=== PATIENT | female | born 1965 | race Caucasian/White ===

== ENCOUNTER 2016-11-22 15:22 | Observation (INO) | payer BC ==
[2016-11-21 23:28] VITALS: PULSE 75
[~2016-11-22] VITALS: Ht 167.6 cm; Wt 137.0 kg
[~2016-11-22 15:22] MED LIST: ALBU8I INH; APIX5 PO; CLIN1CAP5 PO; DUONI NEB; PRAV40 PO; PROT40TA PO; SYMB160A INH
[2016-11-22 15:26] VITALS: BP 189/89; PULSE 95; RESP 17; TEMP 98; O2SAT 98
[2016-11-22] MEDS ORDERED: SODIUM CHLORIDE 0.9% FLUSH 5 ML FLUSH IVF PRN (15:45)
[2016-11-22 16:24] VITALS: BP 131/63; PULSE 76; RESP 16; TEMP 98
--- NOTE | 2016-11-22 16:27 | RADRPT ---
EXAM DATE/TIME: 11/22/2016 16:15 [facility] COMPARISON: CT BRAIN W/O CONTRAST, November 25, 2015, 12:20. INDICATIONS : Altered mental status. RADIATION DOSE: 40.00 CTDIvol (mGy) MEDICAL HISTORY : Hypertension. Asthma. SURGICAL HISTORY : None. ENCOUNTER: Initial ACUITY: 1 day PAIN SCALE: 0/10 LOCATION: cranial TECHNIQUE: Multiple contiguous axial images were obtained of the head. Using automated exposure control and adj ustment of the mA and/or kV according to patient size, radiation dose was kept as low as reasonably a chievable to obtain optimal diagnostic quality images. FINDINGS: CEREBRUM: The ventricles are normal for age. No evidence of midline shift, mass lesion, hemorrhage or acute in farction. No extra-axial fluid collections are seen. POSTERIOR FOSSA: The cerebellum and brainstem are intact. The 4th ventricle is midline. The cerebellopontine angle i s unremarkable. EXTRACRANIAL: The visualized portion of the orbits is intact. SKULL: The calvaria is intact. No evidence of skull fracture. CONCLUSION: Stable unremarkable exam. Hugo Diaz MD on November 22, 2016 at 16:23 Board Certified Radiologist. This report was verified electronically.
[2016-11-22 17:15] LABS: AUTOMATED NEUTROPHIL # 4.1 TH/MM3 (1.8-7.7); BASOPHIL # 0.1 TH/MM3 (0-0.2); BASOPHIL % 0.8 % (0.0-2.0); EOSINOPHIL # 0.2 TH/MM3 (0-0.4); EOSINOPHIL % 3.5 % (0.0-4.0); HEMATOCRIT 40.1 % (35.0-46.0); HEMO FLAGS DIFF FINAL; LYMPH % 24.7 % (9.0-44.0); LYMPHOCYTE # 1.6 TH/MM3 (1.0-4.8); MEAN CELL VOLUME 83.2 FL (80.0-100.0); MEAN CORPUSCULAR HEMOGLOBIN 27.3 PG (27.0-34.0); MEAN CORPUSCULAR HGB CONC 32.9 % (32.0-36.0); MONO % 8.2 % (0.0-8.0); NEUT % 62.8 % (16.0-70.0); PLATELET COUNT 187 TH/MM3 (150-450); RED BLOOD COUNT 4.82 MIL/MM3 (4.00-5.30); RED CELL DISTRIBUTION WIDTH 15.3 % (11.6-17.2); WHITE BLOOD COUNT 6.6 TH/MM3 (4.0-11.0)
[2016-11-22 17:21] LABS: APTT (PATIENT) 24.5 SEC (24.3-30.1); PROTHROMBIN TIME - PATIENT 10.7 SEC (9.8-11.6)
[2016-11-22 17:29] LABS: BICARBONATE 31.8 MEQ/L (21.0-32.0); POTASSIUM 4.1 MEQ/L (3.5-5.1)
[2016-11-22] MEDS ORDERED: ACETAMINOPHEN 325 MG TAB PO ONE (18:00)
--- NOTE | 2016-11-22 18:19 | PD ---
HPI Chief Complaint: Neuro Symptoms/ Deficits Time Seen by Provider: 15:36 Travel History International Travel<30 days: No Contact w/Intl Traveler<30days: No Traveled to known affect area: No History of Present Illness HPI 51-year-old female came to the emergency room with history of headache, stuttering been going on since yesterday. Patient says that it has worsened this morning. She has history of stroke in the past. However her speech is stuttering and not dysarthric or aphasic. She is awake and answering questions appropriately. Vital signs are stable. PFSH Past Medical History Narrative Medical List of her past medical history as reviewed from the nursing note. Asthma: Yes Blood Disorders: No Anxiety: No Depression: No Heart Rhythm Problems: No Cancer: No Cardiovascular Problems: No High Cholesterol: No Chemotherapy: No Chest Pain: No Congestive Heart Failure: No COPD: No Diabetes: No Diminished Hearing: No Endocrine: No GERD: Yes Genitourinary: No Headaches: Yes Hypertension: Yes (when she is sick) Immune Disorder: No Musculoskeletal: Yes (Right shoulder injury) Neurologic: Yes (Migraines) Psychiatric: Yes Reproductive: No Respiratory: Yes (ASTHMA) Immunizations Current: Yes Migraines: Yes Radiation Therapy: No Sleep Apnea: No ?: Not : 0 Para: 0 Miscarriage: 0 : 0 Past Surgical History Abdominal Surgery: Yes (CHOLECYSTECTOMY) AICD: No Arteriovenous Shunt: No Cholecystectomy: Yes (10 YEARS AGO.) Insulin Pump: No Joint Replacement: Yes (screws in right leg from a fall from a horse 20ygo) Pacemaker: No Other Surgery: Yes (CHOLECYSTECTOMY) Social History Alcohol Use: No Tobacco Use: No Substance Use: No Allergies-Medications (Allergen,Severity, Reaction): Coded Allergies: Aspartame (Verified Allergy, Severe, NAUSEA/VOMITING, FACIAL SWELLING, ) Seafood (Verified Allergy, Severe, SOB, 11/22/16) *MDRO Multi-Drug Resistant Organism (Verified Adverse Reaction, Unknown, ) MRSA (arm-06/16/16) Comments List of her allergies reviewed from the nursing note. Reported Meds & Prescriptions Reported Meds & Active Scripts Active Reported Gabapentin 400 Mg Cap 400 Cap PO HS Acetaminophen 325 Mg Tab 325 Mg PO Q4-6H PRN Levothyroxine (Levothyroxine Sodium) 50 Mcg Tab 50 Mcg PO DAILY Bupropion HCl ER 12 HR (Bupropion HCl) 150 Mg Tab 150 Mg PO Q12HR Eliquis (Apixaban) 5 Mg Tab 5 Mg PO BID Pantoprazole (Pantoprazole Sodium) 40 Mg Tab 40 Mg PO DAILY Pravastatin 40 Mg Tab 40 Mg PO DAILY Triamterene-Hydrochlorothiazide 37.5-25 Mg Tab 1 Tab PO DAILY Proair Hfa 8.5 GM Inh (Albuterol Sulfate) 90 Mcg/Act Aer 1 Puff INH Q4H PRN 108 mcg/actuation Narrative Medication List of her home medications reviewed from the nursing note. Review of Systems Except as stated in HPI: all other systems reviewed are Neg Physical Exam Narrative GENERAL: Awake, alert, morbidly obese, moderate distress SKIN: Warm and dry. HEAD: Atraumatic. Normocephalic. EYES: Pupils equal and round. No scleral icterus. No injection or drainage. ENT: No nasal bleeding or discharge. Mucous membranes pink and moist. NECK: Trachea midline. No JVD. CARDIOVASCULAR: Regular rate and rhythm. No murmur appreciated. RESPIRATORY: No accessory muscle use. Clear to auscultation. Breath sounds equal bilaterally. GASTROINTESTINAL: Abdomen soft, non-tender, nondistended. Hepatic and splenic margins not palpable. MUSCULOSKELETAL: No obvious deformities. No clubbing. No cyanosis. No edema. NEUROLOGICAL: Awake and alert. No obvious cranial nerve deficits. Motor grossly within normal limits. Stuttering speech. NIH stroke score of 0 PSYCHIATRIC: Appropriate mood and affect; insight and judgment normal. Data Data Last Documented VS Vital Signs Date Time Temp Pulse Resp B/P Pulse Ox O2 Delivery O2 Flow Rate FiO2 11/22/16 20:06 98.1 78 18 119/60 100 Room Air Orders Electrocardiogram (11/22/16 15:36) Prothrombin Time / Inr (Pt) (11/22/16 15:36) Act Partial Throm Time (Ptt) (11/22/16 15:36) Complete Blood Count With Diff (11/22/16 15:36) Basic Metabolic Panel (Bmp) (11/22/16 15:36) Creatine Kinase (Cpk) (11/22/16 15:36) Troponin I (11/22/16 15:36) Ct Brain W/O Iv Contrast(Rout) (11/22/16 15:36) Ecg Monitoring (11/22/16 15:36) Iv Access Insert/Monitor (11/22/16 15:36) Oximetry (11/22/16 15:36) Sodium Chloride 0.9% Flush (Ns Flush) (11/22/16 15:45) Thyroid Stimulating Hormone (11/22/16 15:53) Acetaminophen (Tylenol) (11/22/16 18:00) Metoclopramide Inj (Reglan Inj) (11/22/16 20:00) Ketorolac Inj (Toradol Inj) (11/22/16 20:00) Admit Order (Ed Use Only) (11/22/16 20:09) Labs Laboratory Tests Test 11/22/16 16:45 White Blood Count 6.6 TH/MM3 Red Blood Count 4.82 MIL/MM3 Hemoglobin 13.2 GM/DL Hematocrit 40.1 % Mean Corpuscular Volume 83.2 FL Mean Corpuscular Hemoglobin 27.3 PG Mean Corpuscular Hemoglobin 32.9 % Concent Red Cell Distribution Width 15.3 % Platelet Count 187 TH/MM3 Mean Platelet Volume 7.6 FL Neutrophils (%) (Auto) 62.8 % Lymphocytes (%) (Auto) 24.7 % Monocytes (%) (Auto) 8.2 % Eosinophils (%) (Auto) 3.5 % Basophils (%) (Auto) 0.8 % Neutrophils # (Auto) 4.1 TH/MM3 Lymphocytes # (Auto) 1.6 TH/MM3 Monocytes # (Auto) 0.5 TH/MM3 Eosinophils # (Auto) 0.2 TH/MM3 Basophils # (Auto) 0.1 TH/MM3 CBC Comment DIFF FINAL Differential Comment Prothrombin Time 10.7 SEC Prothromb Time International 1.0 RATIO Ratio Activated Partial 24.5 SEC Thromboplast Time Sodium Level 138 MEQ/L Potassium Level 4.1 MEQ/L Chloride Level 99 MEQ/L Carbon Dioxide Level 31.8 MEQ/L Anion Gap 7 MEQ/L Blood Urea Nitrogen 16 MG/DL Creatinine 1.22 MG/DL Estimat Glomerular Filtration 46 ML/MIN Rate Random Glucose 100 MG/DL Calcium Level 8.8 MG/DL Total Creatine Kinase 99 U/L Troponin I 0.04 NG/ML Thyroid Stimulating Hormone 3.620 uIU/ML 3rd Gen [facility] Medical Decision Making Medical Screen Exam Complete: Yes Emergency Medical Condition: Yes Medical Record Reviewed: Yes Interpretation(s) Twelve-lead EKG Differential Diagnosis TIA, CVA, psychosomatic Narrative Course 6:[address] scan was within normal limits. Blood test results are within normal limit. Patient was ambulated and she did well without assistance. I am comfortable discharging her home. Procedures EKG Prior to Arrival: No Diagnosis Primary Impression: Stuttering Additional Impression: Headache Qualified Code: R51 - Nonintractable headache, unspecified chronicity pattern , unspecified headache type Referrals: Primary Care Physician 2 days Additional Instructions: Please return to the ER if the condition worsens or any other new concerns. Continue taking her aspirin every day. Follow-up with your primary care in couple days. Med/Other Pt SpecificInfo: No Change to Meds Disposition: 01 DISCHARGE HOME Condition: Stable Sami Ramirez MD Nov 22, 2016 18:18
[2016-11-22] MEDS ORDERED: ACET325T PO (18:34)
[2016-11-22] MEDS ORDERED: ALBUAER3 INH (18:34)
[2016-11-22] MEDS ORDERED: GABA400C5 PO (18:34)
[2016-11-22] MEDS ORDERED: PRAV40TA2 PO (18:34)
[2016-11-22] MEDS ORDERED: BUPR1TAB29 PO (18:34)
[2016-11-22] MEDS ORDERED: TRIA37.5 PO (18:34)
[2016-11-22] MEDS ORDERED: APIX5TAB PO (18:34)
[2016-11-22] MEDS ORDERED: LEVO50TA4 PO (18:34)
[2016-11-22] MEDS ORDERED: PANT40TA3 PO (18:34)
--- NOTE | 2016-11-22 19:58 | PD ---
Data Data Last Documented VS Vital Signs Date Time Temp Pulse Resp B/P Pulse Ox O2 Delivery O2 Flow Rate FiO2 11/22/16 20:06 98.1 78 18 119/60 100 Room Air Orders Electrocardiogram (11/22/16 15:36) Prothrombin Time / Inr (Pt) (11/22/16 15:36) Act Partial Throm Time (Ptt) (11/22/16 15:36) Complete Blood Count With Diff (11/22/16 15:36) Basic Metabolic Panel (Bmp) (11/22/16 15:36) Creatine Kinase (Cpk) (11/22/16 15:36) Troponin I (11/22/16 15:36) Urinalysis - C+S If Indicated (11/22/16 15:36) Ct Brain W/O Iv Contrast(Rout) (11/22/16 15:36) Ecg Monitoring (11/22/16 15:36) Iv Access Insert/Monitor (11/22/16 15:36) Oximetry (11/22/16 15:36) Sodium Chloride 0.9% Flush (Ns Flush) (11/22/16 15:45) Thyroid Stimulating Hormone (11/22/16 15:53) Acetaminophen (Tylenol) (11/22/16 18:00) Metoclopramide Inj (Reglan Inj) (11/22/16 20:00) Ketorolac Inj (Toradol Inj) (11/22/16 20:00) Labs Laboratory Tests Test 11/22/16 16:45 White Blood Count 6.6 TH/MM3 Red Blood Count 4.82 MIL/MM3 Hemoglobin 13.2 GM/DL Hematocrit 40.1 % Mean Corpuscular Volume 83.2 FL Mean Corpuscular Hemoglobin 27.3 PG Mean Corpuscular Hemoglobin 32.9 % Concent Red Cell Distribution Width 15.3 % Platelet Count 187 TH/MM3 Mean Platelet Volume 7.6 FL Neutrophils (%) (Auto) 62.8 % Lymphocytes (%) (Auto) 24.7 % Monocytes (%) (Auto) 8.2 % Eosinophils (%) (Auto) 3.5 % Basophils (%) (Auto) 0.8 % Neutrophils # (Auto) 4.1 TH/MM3 Lymphocytes # (Auto) 1.6 TH/MM3 Monocytes # (Auto) 0.5 TH/MM3 Eosinophils # (Auto) 0.2 TH/MM3 Basophils # (Auto) 0.1 TH/MM3 CBC Comment DIFF FINAL Differential Comment Prothrombin Time 10.7 SEC Prothromb Time International 1.0 RATIO Ratio Activated Partial 24.5 SEC Thromboplast Time Sodium Level 138 MEQ/L Potassium Level 4.1 MEQ/L Chloride Level 99 MEQ/L Carbon Dioxide Level 31.8 MEQ/L Anion Gap 7 MEQ/L Blood Urea Nitrogen 16 MG/DL Creatinine 1.22 MG/DL Estimat Glomerular Filtration 46 ML/MIN Rate Random Glucose 100 MG/DL Calcium Level 8.8 MG/DL Total Creatine Kinase 99 U/L Troponin I 0.04 NG/ML Thyroid Stimulating Hormone 3.620 uIU/ML 3rd Gen [facility] Supervised Visit with FREDI: No Narrative Course The patient was initially evaluated by the previous provider. See her note for further details. The patient was worked up and discharged by the previous provider, however upon discharge the patient reports that she still feels dizzy and has a headache and cannot go home. This is a 51-year-old female with history of CVA. She is on Eliquis. She started having stuttering speech yesterday evening as well as a gradual onset headache which is diffuse. On exam her speech is stuttered. There are no focal neurologic deficits. She was only given Tylenol by the previous provider. She is afebrile. CBC is unremarkable. BMP is remarkable for creatinine 1.22, GFR 46. Troponin is 0.04. TSH is 3.62. CT head read as stable unremarkable exam. I will give the patient Reglan and Toradol and will admit her for further treatment and evaluation of headache, stuttered speech, dizziness. Case discussed with [facility] hospitalist ANAIS Miles. The patient will be admitted to their service under Dr. Alvarado. Diagnosis Primary Impression: Stuttering Additional Impression: Headache Qualified Code: R51 - Intractable headache, unspecified chronicity pattern, unspecified headache type Admitting Information Admitting Physician Requests: Observation Referrals: Primary Care Physician 2 days Patient Instructions: General Instructions, Priapism (ED) Departure Forms: Tests/Procedures Additional Instruction: Please return to the ER if the condition worsens or any other new concerns. Continue taking her aspirin every day. Follow-up with your primary care in couple days. Disposition: 01 DISCHARGE HOME Condition: Stable Bhupendra Franco MD Nov 22, 2016 19:58 Bhupendra Franco MD Nov 22, 2016 19:58
[2016-11-22] MEDS ORDERED: METOCLOPRAMIDE HCL 10 MG/2 ML VIAL IV PUSH ONE (20:00)
[2016-11-22] MEDS ORDERED: KETOROLAC TROMETHAMINE 30 MG/ML (IVP) VIAL IV PUSH ONE (20:00)
[2016-11-22 20:06] VITALS: BP 119/60; PULSE 78; RESP 18; TEMP 98.1; O2SAT 100
[2016-11-22] MEDS ORDERED: NALOXONE HCL 0.4 MG/ML AMP IV PRN (20:15)
[2016-11-22] MEDS ORDERED: SODIUM CHLORIDE 0.9% FLUSH 5 ML FLUSH FLUSH PRN (20:15)
[2016-11-22] MEDS ORDERED: ONDANSETRON HCL 4 MG/2 ML VIAL IVP PRN (20:15)
[2016-11-22] MEDS ORDERED: ALBUTEROL SULFATE 90 MCG/ACT HFA 8 GM INHALER INH PRN (20:15)
[2016-11-22] MEDS ORDERED: ACETAMINOPHEN 325 MG TAB PO PRN (20:15)
[2016-11-22] MEDS ORDERED: GABAPENTIN 400 MG CAP PO SCH (21:00)
[2016-11-22 21:04] VITALS: BP 117/57
[2016-11-22 21:20] VITALS: BP 126/76; PULSE 87; RESP 18; TEMP 98; O2SAT 98
[2016-11-22] MEDS: SODIUM CHLORIDE 0.9% FLUSH 5 ML FLUSH FLUSH SCH (22:00)
[2016-11-22] MEDS: SODIUM CHLOR 0.9% 1000 ML INJ 1,000 ML IV SCH (22:00)
[2016-11-22] MEDS: buPROPion HCL 150 MG SUSTAINED RELEASE TAB PO SCH (22:01)
[2016-11-22] MEDS: APIXABAN 5 MG TABLET PO SCH (22:01)
--- NOTE | 2016-11-22 23:03 | RADRPT ---
EXAM DATE/TIME: 11/22/2016 20:35 [facility] COMPARISON: No previous studies available for comparison. INDICATIONS : Slurred speech. MEDICAL HISTORY : Hypertension. Gastroesophageal reflux disease. Methicillin-resistant Staphylococcus aureus. Migraines . Asthma. SURGICAL HISTORY : Cholecystectomy. Right shoulder injury. Right leg ORIF. ENCOUNTER: Initial ACUITY: 1 day PAIN SCORE: 0/10 LOCATION: Bilateral pelvis PEAK SYSTOLIC VELOCITIES (cm/sec): ICA/CCA RATIO: Right: 0.9 Left: 0.7 ICA: Right: 95 Left: 77 CCA: Right: 109 Left: 105 ECA: Right: 119 Left: 109 VERTEBRAL: Right: 51 antegrade Left: 56 antegrade Elevated flow velocities and ICA/CCA ratios have been found to correlate with increased degrees of vessel stenosis, calculated as percentage of diameter relative to a normal segment of distal ICA/CCA FINDINGS: RIGHT CAROTID: Minimal plaque seen of the right bulb and proximal internal carotid artery. LEFT CAROTID: No significant stenosis is visualized. The waveforms are within normal limits. VERTEBRAL ARTERIES: Antegrade flow is seen in both vertebral arteries. MISCELLANEOUS: None. CONCLUSION: Minimal atherosclerotic plaque of the right bifurcation without narrowing. No plaque or narrowing on the left. Ry Kwon MD on November 22, 2016 at 23:01 Board Certified Radiologist. This report was verified electronically.
[2016-11-23 00:20] VITALS: BP 128/78; PULSE 67; RESP 18; TEMP 97.9; O2SAT 97
[2016-11-23 03:58] VITALS: BP 114/70; PULSE 70; RESP 18; TEMP 98; O2SAT 98
[2016-11-23] MEDS ORDERED: LEVOTHYROXINE SODIUM 50 MCG TAB PO SCH (06:00)
[2016-11-23] MEDS: SODIUM CHLOR 0.9% 1000 ML INJ 1,000 ML IV SCH ×2 (06:10→15:37)
[2016-11-23 08:00] VITALS: PULSE 88
[2016-11-23] MEDS ORDERED: LORazepam 2 MG/ML VIAL IVS PRN (08:15)
[2016-11-23] MEDS ORDERED: ONDANSETRON HCL 4 MG/2 ML VIAL IV PUSH PRN (08:15)
[2016-11-23] MEDS ORDERED: ACETAMIN 325 MG/BUTALBITAL 50 MG/CAFFEINE 40 MG TAB PO PRN (08:15)
--- NOTE | 2016-11-23 08:19 | PD.CONS ---
History of Present Illness Service Neurology Consult Requested By medical/er Reason for Consult headache/tia Primary Care Physician Helen West M.D. History of Present Illness 50-year-old female with a PMH of Asthma and Morbid Obesity who came into the ER with complaints of stuttering speech and headache. has had photo/phonophobia and nausea. holocephalic headache. she feels it has similarities to her migraine headache. no syncope. takes eliquis bid and has been compliant with it. ct brain no ich. glucose 100. no fever, no leukocytosis. no head/neck trauma. Review of Systems Other ROS: 12 point negative rest as above Past Family Social History Past Medical History PMH: Asthma and Morbid Obesity, splenic infarct, migraines, augustine Past Surgical History PAST SURGICAL HISTORY: Cholecystectomy Allergies: Coded Allergies: Aspartame (Verified Allergy, Severe, NAUSEA/VOMITING, FACIAL SWELLING, ) Seafood (Verified Allergy, Severe, SOB, 11/24/15) Family History PAST FAMILY HISTORY: Reviewed. 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 Review of Systems All other ROS: ROS reviewed as documented in chart Past Family Social History Allergies: Coded Allergies: Aspartame (Verified Allergy, Severe, NAUSEA/VOMITING, FACIAL SWELLING, ) Seafood (Verified Allergy, Severe, SOB, 11/24/15) Review of Systems All other ROS: ROS reviewed as documented in chart Past Family Social History Allergies: Coded Allergies: Aspartame (Verified Allergy, Severe, NAUSEA/VOMITING, FACIAL SWELLING, ) Seafood (Verified Allergy, Severe, SOB, 11/22/16) *MDRO Multi-Drug Resistant Organism (Verified Adverse Reaction, Unknown, ) MRSA (arm-06/16/16) Active Ordered Medications Current Medications Medications (Trade) Dose Ordered Sig/Marielos Route Start Time Stop Time Status Last Admin (NS 1000 ml Inj) 1,000 ml @ 100 mls/hr Q10H IV 11/22/16 20:10 11/22/16 22:00 (NS Flush) 2 ml UNSCH PRN FLUSH 11/22/16 20:15 (NS Flush) 2 ml BID FLUSH 11/22/16 21:00 11/22/16 22:00 (Tylenol) 650 mg Q4H PRN PO 11/22/16 20:15 (Zofran Inj) 4 mg Q6H PRN IVP 11/22/16 20:15 (Narcan Inj) 0.4 mg UNSCH PRN IV 11/22/16 20:15 (Proair Hfa Inh) 1 puff Q4H PRN INH 11/22/16 20:15 (Eliquis) 5 mg BID PO 11/22/16 21:00 11/22/16 22:01 (Wellbutrin Sr) 150 mg Q12HR PO 11/22/16 21:00 11/22/16 22:01 (Neurontin) 400 mg HS PO 11/22/16 21:00 11/22/16 22:01 (Synthroid) 50 mcg DAILY@06 PO 11/23/16 06:00 11/23/16 06:36 (Protonix) 40 mg DAILY PO 11/23/16 09:00 (Pravachol) 40 mg DAILY PO 11/23/16 09:00 (Maxzide 37.5-25 Mg) 1 tab DAILY PO 11/23/16 09:00 Exam I&O / VS Vital Signs Date Time Temp Pulse Resp B/P Pulse Ox O2 Delivery O2 Flow Rate FiO2 11/23/16 03:58 98.0 70 18 114/70 98 11/23/16 00:20 97.9 67 18 128/78 97 11/22/16 21:20 98.0 87 18 126/76 98 11/22/16 21:04 117/57 11/22/16 20:06 98.1 78 18 119/60 100 Room Air 11/22/16 16:31 91 16 Room Air 11/22/16 16:24 98.0 76 16 131/63 11/22/16 15:26 98.0 95 17 189/89 98 General: Alert and Oriented, No acute distress Eye: EOMI Respiratory: Non-labored respirations Cardiology: Normal rate Neurologic: Alert, Oriented, Normal motor, No focal defects, CN II-XII intact Psychiatric: Cooperative Exam Comments alert, sitting up in bed. was texting on her phone when i walked in. stuttered speech. able to name, read. follows midline request. eomi, ou 3-2mm, face sym, zhao to gravity, morbid obesity, gait not assessed 2/2 fall risk Review/Management Diagnosis/Plan: (1) MIGRAINE UNSPECIFIED W/O INTRACT MGRN W/O STATUS MIGRAINOSUS Plan: probable migraine r/o recurrent left mca stroke on eliquis had stuttering 11/2015 and mri showed a tiny left mca infarct mra brain/carotids nml recs mri/mra brain fioricet, zofran prn if no acute lesion ok to d/c when pain controlled and cleared by p.t. wt loss/exercise outpatient f/u (2) Chronic ischemic left MCA stroke Plan: on eliquis (3) Factor 5 Leiden mutation, heterozygous Plan: on eliquis (4) AUGUSTINE (obstructive sleep apnea) Plan: on cpap (5) Morbid obesity with body mass index of 50.0-59.9 in adult Plan: wt loss/exercise Sunny Porras MD Nov 23, 2016 08:19
[2016-11-23 08:44] VITALS: BP 131/77; PULSE 75; RESP 20; TEMP 96.8; O2SAT 96
[2016-11-23] MEDS ORDERED: TRIAMTERENE/HCTZ 37.5 MG/25 MG TAB PO SCH (09:00)
[2016-11-23] MEDS ORDERED: PANTOPRAZOLE SOD 40 MG DELAYED RELEASE TAB PO SCH (09:00)
[2016-11-23] MEDS: SODIUM CHLORIDE 0.9% FLUSH 5 ML FLUSH FLUSH SCH (09:00)
[2016-11-23] MEDS ORDERED: PRAVASTATIN SOD 40 MG TAB PO SCH (09:00)
[2016-11-23 09:07] LABS: AUTOMATED NEUTROPHIL # 4.1 TH/MM3 (1.8-7.7); BASOPHIL % 0.6 % (0.0-2.0); EOSINOPHIL # 0.3 TH/MM3 (0-0.4); EOSINOPHIL % 4.3 % (0.0-4.0); HEMATOCRIT 39.8 % (35.0-46.0); HEMO FLAGS DIFF FINAL; LYMPH % 20.9 % (9.0-44.0); LYMPHOCYTE # 1.3 TH/MM3 (1.0-4.8); MEAN CELL VOLUME 83.3 FL (80.0-100.0); MEAN CORPUSCULAR HEMOGLOBIN 27.2 PG (27.0-34.0); MEAN CORPUSCULAR HGB CONC 32.7 % (32.0-36.0); MONO % 9.3 % (0.0-8.0); NEUT % 64.9 % (16.0-70.0); PLATELET COUNT 182 TH/MM3 (150-450); RED BLOOD COUNT 4.78 MIL/MM3 (4.00-5.30); RED CELL DISTRIBUTION WIDTH 15.2 % (11.6-17.2); WHITE BLOOD COUNT 6.3 TH/MM3 (4.0-11.0)
[2016-11-23 09:33] LABS: BICARBONATE 31.2 MEQ/L (21.0-32.0); POTASSIUM 3.9 MEQ/L (3.5-5.1)
[2016-11-23] MEDS: buPROPion HCL 150 MG SUSTAINED RELEASE TAB PO SCH (09:43)
[2016-11-23] MEDS: APIXABAN 5 MG TABLET PO SCH (09:43)
[2016-11-23] MEDS ORDERED: BUTATAB6 PO (09:59)
--- NOTE | 2016-11-23 11:28 | MH ---
cc: KARINA ALVARADO MD DATE OF ADMISSION: 11/22/2016 TRAVEL HISTORY None less than 30 days. HISTORY OF PRESENT ILLNESS This is a pleasant obese 51-year-old female who came to the emergency room with acute onset of stuttering approximately 24 hours ago. She states that it has worsened this morning and at this point it is hard to comprehend any type of long phrases or sentences she is saying. She does admit having a stroke in the past, but she did not have the same symptoms that she is having now such as the stuttering. She did not note with the previous stroke any aphasia. The patient seems to be a good historian but secondary to the stuttering some of the information is now being gathered from her mother who has just arrived in the room. The patient denies any syncope. She does state that the onset of her stuttering started when she was speaking to someone on the phone and got very stressed out. She denies any nausea. She does have chronic headaches and states that she did start to have a headache yesterday with the onset. The patient verbalizes yes to being able to read, understand and comprehend verbal responses, and she can follow instructions. Currently the patient is awake and alert. She denies any diarrhea and no problems with her kidneys voiding. She does note a bowel movement within the last 24 hours. Currently the patient is on Eliquis. She has a history of obstructive sleep apnea and her CPAP machine is in the room with her. PAST MEDICAL HISTORY 1. Asthma. 2. CVA. 3. GERD. 4. Headaches/migraines 5. Hypertension, which mostly occurs when she is not feeling well. 6. Right shoulder injury. 7. Arthritis. 8. Obstructive sleep apnea. 9. MRSA right arm. PAST SURGICAL HISTORY 1. Cholecystectomy. 2. Screws in the right leg status post a fall from a horse approximately 20 years ago. ALLERGIES 1. ASPARTAME. 2. SEAFOOD. 3. MDRO. SOCIAL HISTORY No tobacco. No alcohol. No illicit drug use. The patient is single, currently lives in a home with her brother, sister and mother. 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 FAMILY HISTORY Heart disease, hypertension. MEDICATIONS Home medications: 1. Tylenol. 2. Butalbital, acetaminophen and caffeine, 50/325, 40 mg tab p.r.n. q.8h. for headache. 3. Eliquis 5 mg b.i.d. 4. Gabapentin 400 mg h.s. 5. Bupropion HCl ER 12 hour, 150 mg every 12 hours. 6. Albuterol inhaler p.r.n. for shortness of breath. 7. Pravastatin 40 mg p.o. daily. 8. Triamterene/hydrochlorothiazide 37.5/25 mg tab, one p.o. daily. 9. Protonix 40 mg daily. 10. Levothyroxine 50 mcg p.o. daily. REVIEW OF SYSTEMS A 12-point review was done. Positive findings include speech stuttering constant. All other systems were negative. PHYSICAL EXAMINATION GENERAL: An awake and alert x4 morbidly obese white female sitting up in the bed in no acute distress. SKIN: Warm and dry. No rashes. HEENT: Atraumatic, normocephalic. Mucous membranes are moist and pink. Pupils 2 mm bilaterally, equal, round, reactive to light and accommodation. No scleral icterus. No drainage noted in the eyes or nose. NECK: Supple. HEART: Regular rate and rhythm without murmurs, rubs or gallops appreciated. Heart sounds are distant. LUNGS: Essentially clear anteriorly and posteriorly without wheezes, rales or rhonchi. ABDOMEN: Soft, obese, nontender, nondistended. EXTREMITIES: Moves all extremities with purpose. She does have 1+ pedal edema bilaterally but her pulses are intact. No obvious deformities. No clubbing. NEUROLOGIC: Awake and alert x4. 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 Cranial nerves without deficits. Motor is within normal limits. Stuttering speech constant. PSYCHIATRIC: Appropriate affect and mood. Judgment normal. LABORATORY DATA On 11/23/2016 WBC count 6.3, RBC 4.78, hemoglobin 13, hematocrit 39.8, platelet count 182. [place] percentage 9.3, eosinophil percentage 4.3. INR is 1. Chemistry on 11/23/2016: Sodium 140, potassium 3.9, chloride 101, anion gap 8, BUN 21, creatinine 1.30, GFR 43, glucose 117. IMAGING DATA CT of the head: Stable, unremarkable exam. Carotid ultrasound: Minimal atherosclerotic plague of the right bifurcation without narrowing. No plaque or narrowing on the left. ASSESSMENT 1. Possible recurrent left MCA stroke, acute versus chronic. 2. Listless stuttering. 3. Non-retractable headache, probable migraine, without status migrainosus. 4. Obstructive sleep apnea. 5. Morbid obesity. PLAN 1. Monitor her vital signs q.4h. 2. Consult neurology for an expert opinion. 3. Medications as ordered. Reconcile medications. 4. Neuro-checks q.4h. 5. Cardiac monitoring. 6. Heart-healthy diet. 7. DVT prophylaxis. The patient is on Eliquis. 8. PUD prophylaxis. The patient is on Protonix. 9. IV access and flushing p.r.n. 10. Bed rest. May be out of bed with assistance due to safety reasons. 11. The patient is full code. Full aggressive care. 12. Will manage patient's chronic sleep apnea with her CPAP. 13. Will consider further testing such as MRI and MRA if warranted. This information will be discussed with Dr. Alvarado. This patient was seen on his behalf. This was discussed with the patient, the patient's mother and the patient's nurse. Dictated by: DASIA Stone Karina Alvarado MD MNAsael/BT /10:04 AM /11:27 AM pt is seen & Examined d/w PT & her mother at bedside Neuro input appreciated/ migraine MR Brain done ,neg for CVA headache is better d/w Angela , see H&P medically stable for d/c d/c home today cont current tx loose weight f/u pcp f/u Neurology Karina Alvarado MD Nov 23, 2016 14:59 MTDD
[2016-11-23 12:13] VITALS: BP 135/83; PULSE 82; RESP 20; TEMP 96.6; O2SAT 96
--- NOTE | 2016-11-23 13:30 | RADRPT ---
EXAM DATE/TIME: 11/23/2016 12:33 [facility] COMPARISON: MRI BRAIN W/O CONTRAST, November 27, 2015, 16:15. INDICATIONS : Slurred speech. MEDICAL HISTORY : Hypertension. Myocardial infarction. SURGICAL HISTORY : Cholecystectomy. Loop recorder. ENCOUNTER: Subsequent ACUITY: 2 day PAIN SCORE: 3/10 LOCATION: head. TECHNIQUE: Multiplanar, multisequence MRI of the brain was performed without contrast. FINDINGS: MRI of the brain is performed in sagittal, axial and coronal planes. The craniocervical junction and midline structures are unremarkable. Diffusion weighted images demonstrate no abnormality. There is n o evidence of acute cortical infarction, acute hemorrhage, mass effect or midline shift is seen. Post erior fossa structures are unremarkable. CONCLUSION: No evidence of acute intracranial pathology. No masses are identified. Carlitos Raphael MD on November 23, 2016 at 13:27 Board Certified Radiologist. This report was verified electronically.
--- NOTE | 2016-11-23 13:48 | RADRPT ---
EXAM DATE/TIME: 11/23/2016 12:33 [facility] COMPARISON: US CAROTID ARTERIES, November 22, 2016, 20:35. MRI BRAIN W/O CONTRAST, November 23, 2016, 12:33. MRA BRAIN W/O CONTRAST, November 27, 2015, 16:15. INDICATIONS : Slurred speech. MEDICAL HISTORY : Hypertension. Myocardial infarction. SURGICAL HISTORY : Cholecystectomy. Loop recorder. ENCOUNTER: Initial ACUITY: 2 day PAIN SCORE: 3/10 LOCATION: head Please note a normal MRA of the brain does not entirely exclude the possibility of a small aneurysm, TECHNIQUE: 3D time of flight MRA was performed. Source images, multiplanar STS MIP, and 3D volume MIP reconstru ctions were reviewed. FINDINGS: There is excellent visualization of the major intracranial arteries out to the second-order branch ve ssels. Anterior circulation: Significant steno-occlusive disease is identified in the proximal M2 branches of the right middle cer ebral artery. An abrupt cutoff of proximal M2 branch is characteristic of vascular occlusion. Signifi cant asymmetry is identified in the number of M2 and M3 branches from right to left with significantl y less branches seen on the right. Posterior circulation: The basilar and posterior cervical arteries are patent without significant stenosis or occlusions. CONCLUSION: Steno-occlusive disease is evident in the proximal M2 branches of the right middle ce rebral artery. Unremarkable left cerebral and vertebrobasilar circulations. Nabil Kowalski MD on November 23, 2016 at 13:31 Board Certified Radiologist. This report was verified electronically.
--- NOTE | 2016-11-23 15:00 | HHI.PR ---
Objective Objective Results - Vital Signs Date Time Temp Pulse Resp B/P Pulse Ox O2 Delivery O2 Flow Rate FiO2 11/23/16 12:13 96.6 82 20 135/83 96 11/23/16 08:44 96.8 75 20 131/77 96 11/23/16 08:00 88 11/23/16 03:58 98.0 70 18 114/70 98 11/23/16 00:20 97.9 67 18 128/78 97 11/22/16 21:20 98.0 87 18 126/76 98 11/22/16 21:04 117/57 11/22/16 20:06 98.1 78 18 119/60 100 Room Air 11/22/16 16:31 91 16 Room Air 11/22/16 16:24 98.0 76 16 131/63 11/22/16 15:26 98.0 95 17 189/89 98 Result Diagram: 11/23/16 0815 11/23/16 0815 Other Results Laboratory Tests Test 11/22/16 11/23/16 11/23/16 16:45 08:15 10:00 White Blood Count 6.6 6.3 Red Blood Count 4.82 4.78 Hemoglobin 13.2 13.0 Hematocrit 40.1 39.8 Mean Corpuscular Volume 83.2 83.3 Mean Corpuscular Hemoglobin 27.3 27.2 Mean Corpuscular Hemoglobin 32.9 32.7 Concent Red Cell Distribution Width 15.3 15.2 Platelet Count 187 182 Mean Platelet Volume 7.6 7.7 Neutrophils (%) (Auto) 62.8 64.9 Lymphocytes (%) (Auto) 24.7 20.9 Monocytes (%) (Auto) 8.2 9.3 Eosinophils (%) (Auto) 3.5 4.3 Basophils (%) (Auto) 0.8 0.6 Neutrophils # (Auto) 4.1 4.1 Lymphocytes # (Auto) 1.6 1.3 Monocytes # (Auto) 0.5 0.6 Eosinophils # (Auto) 0.2 0.3 Basophils # (Auto) 0.1 0.0 CBC Comment DIFF FINAL DIFF FINAL Differential Comment Prothrombin Time 10.7 Prothromb Time International 1.0 Ratio Activated Partial 24.5 Thromboplast Time Sodium Level 138 140 Potassium Level 4.1 3.9 Chloride Level 99 101 Carbon Dioxide Level 31.8 31.2 Anion Gap 7 8 Blood Urea Nitrogen 16 21 Creatinine 1.22 1.30 Estimat Glomerular Filtration 46 43 Rate Random Glucose 100 117 Calcium Level 8.8 8.6 Total Creatine Kinase 99 Troponin I 0.04 Thyroid Stimulating Hormone 3.620 3rd Gen Nasal Screen MRSA (PCR) POSITIVE Physical Exam Physical Exam pt is seen & Examined d/w PT & her mother at bedside Neuro input appreciated/ migraine MR Brain done ,neg for CVA headache is better d/w Angela , see H&P medically stable for d/c d/c home today cont current tx loose weight f/u pcp f/u Neurology Abhinav Alvarado MD Nov 23, 2016 14:59
[2016-11-23 17:25] VITALS: BP 110/65; PULSE 71; RESP 18; TEMP 97.7; O2SAT 98
--- NOTE | 2016-11-23 22:48 | EKG ---
Date Performed: 11/22/2016 Time Performed: 20:18:26 PTAGE: 51 years EKG: Sinus rhythm LOW QRS VOLTAGE IN PRECORDIAL LEADS BORDERLINE ECG PREVIOUS TRACING : 11/24/2015 23.33 DOCTOR: Karlo Santos Interpretating Date/Time 11/23/2016 22:43:56
--- NOTE | 2016-11-24 14:56 | EC ---
Study Study Date:11/23/2016 STUDY CONCLUSIONS SUMMARY - Procedure narrative: Image quality was fair. The study was technically limited due to body habitus. - Left ventricle: The cavity size was normal. Systolic function was normal. The estimated ejection fraction was in the range of 55% to 60%. Although no diagnostic regional wall motion abnormality was identified, this possibility cannot be completely excluded on the basis of this study. - Mitral valve: Question of elevated pressure consistant with mild to moderate mitral stenosis, but difficult to tell due to overall quality. If concern for mitral stenosis, would consider other modality. If LV function is below 40, please consider prescribing an ACEI or ARB or document rationale for non-use. PROCEDURE DATA STUDY STATUS: Elective. Procedure: Transthoracic echocardiography. Image quality was fair. The study was technically limited due to body habitus. Scanning was performed from the parasternal, apical, and subcostal acoustic windows. Study completion: The patient tolerated the procedure well. Transthoracic echocardiography. M-mode, complete 2D, complete spectral Doppler, and color Doppler. Patient status: Inpatient. CARDIAC ANATOMY LEFT VENTRICLE: The cavity size was normal. Systolic function was normal. The estimated ejection fraction was in the range of 55% to 60%. Although no diagnostic regional wall motion abnormality was identified, this possibility cannot be completely excluded on the basis of this study. AORTIC VALVE: The valve appears to be grossly normal. Doppler: There was no stenosis. No significant regurgitation. MITRAL VALVE: Not well visualized. Question of elevated pressure consistant with mild to moderate mitral stenosis, but difficult to tell due to overall quality. If concern for mitral stenosis, would consider other modality. Doppler: No significant regurgitation. Mean gradient: 7mm Hg (D). Peak gradient: 16mm Hg (D). PULMONIC VALVE: Not visualized. TRICUSPID VALVE: The valve appears to be grossly normal. Doppler: There was no evidence for stenosis. No significant regurgitation. BASIC MEASUREMENTS ADULT Normal Left ventricle LV internal dimension, ED, chordal level, *39 mm 43-52 PLAX LV posterior wall thickness, ED 6.29 mm IVS/LVPW ratio, ED *1.31 <1.3 Ventricular septum Septal thickness, ED 8.21 mm Left atrium Anterior-posterior dimension 34 mm Right ventricle RV internal dimension, ED, PLAX 19.4 mm 19-38 DOPPLER MEASUREMENTS ADULT Normal Aortic valve VTI, S 62.5 cm Mitral valve Peak E-wave velocity 160 cm/s Peak A-wave velocity 180 cm/s Mean velocity, D 120 cm/s Mean gradient, D 7 mm Hg Peak gradient, D 16 mm Hg Peak E/A ratio 0.9 Tricuspid valve Regurgitant peak velocity 252 cm/s Peak RV-RA gradient, S 25 mm Hg Maximal regurgitant velocity 252 cm/s LEGEND: Mean values are shown as u=mean value. Asterisk (*) lopez values outside specified normal range. Prepared and signed by Nahid Magaña [id number]
[2017-03-19] MEDS ORDERED: GABA300C5 PO (13:26)
[2017-03-19] MEDS ORDERED: CYAN1TAB24 (14:00)
[2017-03-19] MEDS ORDERED: CYAN1000P IM (14:00)
== END 2016-11-23 18:01 | disposition home or self-care (01) ==
LOC: NEPE 15:22 → NEDA 20:11 → NEPFCDU 21:19
PROVIDERS: ADMIT Specialist; ATTEND Specialist
DX: G43.909 Migraine, unspecified, not intractable, without status migrainosus (principal); F80.81 Childhood onset fluency disorder; J45.909 Unspecified asthma, uncomplicated; K21.9 Gastro-esophageal reflux disease without esophagitis; I10 Essential (primary) hypertension; Z79.899 Other long term (current) drug therapy; R42 Dizziness and giddiness; Z79.01 Long term (current) use of anticoagulants; Z86.73 Personal history of transient ischemic attack (TIA), and cerebral infarction without residual deficits; E66.01 Morbid (severe) obesity due to excess calories; D68.51 Activated protein C resistance; G47.33 Obstructive sleep apnea (adult) (pediatric)
CPT/HCPCS: 70450; 70544; 70551; 80048; 82550; 84443; 84484; 85025; 85610; 85730; 87641; 92523; 93005; 93306; 93880; 97163; 99285; G0378; G8987; G8988; G8999; G9158; G9186; J1885; J2060; J2765; J7030

== ENCOUNTER → 2017-03-19 | Outpatient (CLI) | payer BC ==
[~2017-03-19] MED LIST changes: +ACET325T PO; -ALBU8I INH; +ALBUAER3 INH; -APIX5 PO; +APIX5TAB PO; +BUPR1TAB29 PO; +BUTATAB6 PO; -CLIN1CAP5 PO; +CYAN1000P IM; +CYAN1TAB24; -DUONI NEB; +GABA300C5 PO; +GABA400C5 PO; +LEVO50TA4 PO; +MEDR4PAK PO; +PANT40TA3 PO; -PRAV40 PO; +PRAV40TA2 PO; -PROT40TA PO; -SYMB160A INH; +TRIA37.5 PO; +VENTAER INH; +ZITHTAB PO
--- NOTE | 2017-03-20 11:05 | EKG ---
Date Performed: 03/19/2017 Time Performed: 13:16:06 PTAGE: 51 years EKG: Sinus rhythm LOW QRS VOLTAGE IN PRECORDIAL LEADS INFERIOR MYOCARDIAL INFARCTION, PROBABLY OLD ABNORMAL ECG PREVIOUS TRACING : 11/22/2016 20.18 DOCTOR: Michele Lenz Interpretating Date/Time 03/20/2017 11:04:17
--- NOTE | 2017-03-24 11:54 | MH ---
cc: HAIM OLIVA DATE OF ADMISSION: 03/19/2017 ADMITTING DIAGNOSIS: postmenopausal bleeding with morbid obesity. HISTORY OF PRESENT ILLNESS: The patient is a 51-year-old single white female para 0 who had amenorrhea for 18 months and then bled heavily at the end of August and early September of 2016 leading to pads and tampons with large clots. She is now admitted for D&C. PAST MEDICAL HISTORY: 1. 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 2. She also has a history of sleep apnea. MEDICATIONS: Her medications include: 1. Maxzide. 2. Eliquis. 3. Statins. 4. Reflux inhibitors. ALLERGIES: 1. ASPARTAME. 2. SEAFOOD. 3. DEPAKOTE. TRANSFUSIONS: None OBSTETRICAL HISTORY: None. 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 She is single. Alcohol, tobacco and drugs are none. FAMILY HISTORY: Noncontributory. PHYSICAL EXAMINATION: GENERAL: A morbidly obese white female. VITAL SIGNS: Stable. HEIGHT: 5 feet 4. WEIGHT: 324 pounds. HEAD, EYES, EARS, NOSE, THROAT: Normal. CHEST: Clear. HEART: Regular rate. ABDOMEN: Benign. BREASTS: Symmetrical. PELVIC EXAM: Normal external genitalia and BUS. Vagina is normal. Cervix normal. Uterus normal size and shape anterior. No adnexal masses. IMAGING STUDIES: Ultrasound from 10/08/16 shows the uterus measuring 6.5 cm which could not be seen. Endometrium was 2 mm but could not be well visualized. ASSESSMENT: As above. PLAN: She is now admitted for hysteroscopy and D&C. While in the office, I explained the procedures, the risks, benefits, complications and possible need for additional procedure depending on the findings. MD STEPHANIE Zamora/PROSPER /10:37 AM /11:47 AM
== END ==
LOC: CPRE 12:55
PROVIDERS: ATTEND Obstetrics & Gynecology
DX: Z01.810 Encounter for preprocedural cardiovascular examination (principal); N95.0 Postmenopausal bleeding; R94.31 Abnormal electrocardiogram [ECG] [EKG]
CPT/HCPCS: 93005

== ENCOUNTER → 2017-03-25 | Day surgery (SDC) | payer BC ==
[~2017-03-25] VITALS: Ht 160 cm; Wt 159.3 kg
[~2017-03-25] MED LIST changes: +*ONDANSETRON 4 MG VIAL PERIprocedural Use ONLY ONE; +*RESP: ALBUTEROL 2.5 MG/3 ML NEB (PRN) PERIprocedural Use ONLY NEB ONE; +ACETAMINOPHEN 1000 MG/100 ML VIAL IV SCH; -BUPR1TAB29 PO; +CHLORHEXIDINE GLUCONATE 2 % 1 PACK (2 CLOTHS) TOPICAL PRN; +DEXAMETHASONE SOD PHOS 4 MG/ML VIAL ONE; +FAMOTIDINE 20 MG/2 ML VIAL ONE; -GABA400C5 PO; +INSULIN HUMAN REGULAR 1,000 UNITS/10 ML VIAL SQ PRN; +KETOROLAC TROMETHAMINE 60 MG/2 ML (IM) VIAL IM ONE; +LACTATED RINGER'S 1000 ML IV PRN; +METOCLOPRAMIDE HCL 10 MG/2 ML VIAL ONE; +METOPROLOL TARTRATE 25 MG TAB PO PRN; +MIDAZOLAM HCL 2 MG/2 ML VIAL ONE; +ONDANSETRON HCL 4 MG/2 ML VIAL IV PUSH ONE; +POVIDONE IODINE 5% (ANTISEPSIS KIT) 4 APPLICATIONS EACH NARE PRN; +PROPOFOL 200 MG/20 ML AMP IV ONE; +SODIUM CHLORID 0.9% 500 ML IV PRN; +ceFAZolin 1,000 MG/NS 100 ML IV SCH; +fentaNYL CITRATE 250 MCG/5 ML AMP ONE
[2017-03-25 06:32] VITALS: BP 117/80; PULSE 75; RESP 20; TEMP 98.6; O2SAT 99
[2017-03-25 07:18] LABS: BLOOD, URINE NEG (NEG); COMMENT (UR) CATH-CULT NOT IND; CULTURE IF INDICATED CATH CULTURE NOT IND; GLUCOSE,URINE NEG (NEG); KETONE, URINE NEG (NEG); MUCUS URINE FEW /lpf (OCC); NITRITE,URINE NEG (NEG); SQUAMOUS EPITHELIAL CELL URINE 1 /hpf (0-5); URINE COLOR YELLOW (YELLW/STRAW)
[2017-03-25 09:41] VITALS: BP 99/69; PULSE 76; RESP 18; TEMP 97.4; O2SAT 92
--- NOTE | 2017-03-26 08:35 | MP ---
cc: HAIM OLIVA DATE OF SURGERY: 03/25/2017 PREOPERATIVE DIAGNOSIS Postmenopausal bleeding. POSTOPERATIVE DIAGNOSIS Postmenopausal bleeding. PROCEDURE Hysteroscopy, D&C. ANESTHESIA General endotracheal. SURGEON Haim Oliva MD RESIDENTIAL SERVICE TECHNICIAN MICHELL Wilde. ESTIMATED BLOOD LOSS Less than 10 cc. FLUIDS 300 cc crystalloid. OBJECTIVE FINDINGS Following the induction of adequate general endotracheal anesthesia the patient was prepped and draped supine on the operating table in the dorsal lithotomy position in the usual sterile fashion with the bladder being drained via in and out catheterization. Exam under anesthesia revealed a normal size, shape, anterior uterus, no adnexal masses. A heavy weighted speculum was placed in the posterior fornix of the vagina. The anterior lip of the cervix was grasped with a single-tooth tenaculum. The cervix and uterus sounded to 8 cm. The cervix was dilated to a #16 Hanks dilator. The hysteroscope was passed with normal endocervix, normal endometrium. The scope was withdrawn. Endocervical curettings were obtained with a small serrated curette, endometrium with a small sharp curette. The cervical tenaculum site was sutured with 2-0 chromic. All retractors were removed. All counts were correct. The patient was taken out of the [facility]. She was awakened and taken to the recovery room in good condition. MD STEPHANIE Zamora/BT /7:57 AM /8:28 AM
== END | disposition home or self-care (01) ==
LOC: HSDC 05:37
PROVIDERS: ATTEND Obstetrics & Gynecology
DX: N95.0 Postmenopausal bleeding (principal); N84.0 Polyp of corpus uteri; I10 Essential (primary) hypertension; J45.909 Unspecified asthma, uncomplicated; G47.30 Sleep apnea, unspecified
CPT/HCPCS: 00952; 58558; 81001; 88305; 94664; J0131; J0690; J1100; J1885; J2250; J2405; J2765; J3010; J7120; J7613

== ENCOUNTER 2017-04-15 17:45 | Emergency (ER) | payer BC ==
[~2017-04-15] VITALS: Ht 160 cm; Wt 156.0 kg
[~2017-04-15 17:45] MED LIST changes: -*ONDANSETRON 4 MG VIAL PERIprocedural Use ONLY ONE; -*RESP: ALBUTEROL 2.5 MG/3 ML NEB (PRN) PERIprocedural Use ONLY NEB ONE; -ACETAMINOPHEN 1000 MG/100 ML VIAL IV SCH; -CHLORHEXIDINE GLUCONATE 2 % 1 PACK (2 CLOTHS) TOPICAL PRN; -CYAN1TAB24; -DEXAMETHASONE SOD PHOS 4 MG/ML VIAL ONE; -FAMOTIDINE 20 MG/2 ML VIAL ONE; -INSULIN HUMAN REGULAR 1,000 UNITS/10 ML VIAL SQ PRN; -KETOROLAC TROMETHAMINE 60 MG/2 ML (IM) VIAL IM ONE; -LACTATED RINGER'S 1000 ML IV PRN; -MEDR4PAK PO; -METOCLOPRAMIDE HCL 10 MG/2 ML VIAL ONE; -METOPROLOL TARTRATE 25 MG TAB PO PRN; -MIDAZOLAM HCL 2 MG/2 ML VIAL ONE; -ONDANSETRON HCL 4 MG/2 ML VIAL IV PUSH ONE; -POVIDONE IODINE 5% (ANTISEPSIS KIT) 4 APPLICATIONS EACH NARE PRN; -PROPOFOL 200 MG/20 ML AMP IV ONE; -SODIUM CHLORID 0.9% 500 ML IV PRN; -VENTAER INH; -ZITHTAB PO; -ceFAZolin 1,000 MG/NS 100 ML IV SCH; -fentaNYL CITRATE 250 MCG/5 ML AMP ONE
[2017-04-15 17:54] VITALS: BP 159/77; PULSE 104; RESP 18; O2SAT 98
--- NOTE | 2017-04-15 18:20 | PD ---
HPI Chief Complaint: Respiratory Symptoms Time Seen by Provider: 18:16 Travel History International Travel<30 days: No Contact w/Intl Traveler<30days: No Traveled to known affect area: No History of Present Illness HPI Patient was sent over from urgent care after being evaluated there for cough, congestion, sinus pressure, wheezing, shortness of breath ongoing for 3 days. Patient denies any fevers, nausea, vomiting, chest pain, abdominal pain, headache, numbness or tingling anywhere. Patient states that she is out of her inhaler and tried to get a refill but does not have any at the pharmacy. Patient called her primary care doctor's office but her doctors out of town currently. Patient went to the urgent care seeking a prescription for her inhaler. Upon arrival to urgent care patient's O2 was found to be 93% on room air, respiratory rate 18, pulse of 83, and temperature 98.2. Patient was subsequently given Solu-Medrol, Rocephin, and a breathing treatment then placed on oxygen and sent to the emergency department. Patient reports improvement of her breathing status post medication at the urgent care and did not want to be transported here but was compliant and came anyway. PFSH Past Medical History Asthma: Yes Blood Disorders: No Anxiety: No Depression: No Heart Rhythm Problems: No Cancer: No Cardiovascular Problems: No (LOWER LEG EDEMA) High Cholesterol: No Chemotherapy: No Chest Pain: No Congestive Heart Failure: No COPD: No Diabetes: No Diminished Hearing: No Deep Vein Thrombosis: Yes Endocrine: No GERD: Yes Genitourinary: No Headaches: Yes Hepatitis: No Hiatal Hernia: No Hypertension: Yes (when she is sick) Immune Disorder: No Musculoskeletal: Yes (Right shoulder injury, OA) Neurologic: Yes (MIGRAINES, STROKE, BLOOD CLOTS, RESTLESS LEG SYNDROME) Psychiatric: Yes (DEPRESSION) Reproductive: No Respiratory: Yes (ASTHMA, SLEEP APNEA 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) Immunizations Current: Yes Migraines: Yes Radiation Therapy: No Sleep Apnea: No Thyroid Disease: Yes (HYPOTHYROID) ?: Not LMP: 2014 Menopausal: Yes : 0 Para: 0 Miscarriage: 0 : 0 Past Surgical History Abdominal Surgery: Yes (CHOLECYSTECTOMY) AICD: No Arteriovenous Shunt: No Body Medical Devices: PLATE RIGHT LEG, SCREWS RIGHT ANKLE Cardiac Surgery: No Cholecystectomy: Yes (10 YEARS AGO.) Ear Surgery: No Endocrine Surgery: No Eye Surgery: No Genitourinary Surgery: No Gynecologic Surgery: No Insulin Pump: No Joint Replacement: No Oral Surgery: No Pacemaker: No Thoracic Surgery: No Other Surgery: Yes (CHOLECYSTECTOMY) Social History Alcohol Use: No Tobacco Use: No Substance Use: No Allergies-Medications (Allergen,Severity, Reaction): Coded Allergies: Aspartame (Verified Allergy, Severe, NAUSEA/VOMITING, FACIAL SWELLING, 10/20) Depakote (Verified Allergy, Severe, rash, 04/15/17) Seafood (Verified Allergy, Severe, SOB, 04/15/17) *MDRO Multi-Drug Resistant Organism (Verified Adverse Reaction, Unknown, ) MRSA (arm) - 06/16/16 Reported Meds & Prescriptions Reported Meds & Active Scripts Active Medrol Dosepak (Methylprednisolone) 4 Mg Dspk 4 Mg PO DIRECTED Per Pharmacist direction Zithromax Z-[place] (Azithromycin) 250 Mg Dspk 250 Mg PO DIRECTED 500 MG (2 tabs) day 1, then 1 tab days 2-5. Ventolin Hfa 18 GM Inh (Albuterol Sulfate) 90 Mcg/Act Aer 2 Puff INH Q4H PRN Hcwmscdwjv-Sxbczgyfbjgyu-Rnepbigr 50-325-40 Mg Tab 1 Tab PO Q8H PRN Reported Cyanocobalamin Inj (Cyanocobalamin) 1,000 Mcg/Ml Inj 1,000 Mcg IM Q30D Gabapentin 300 Mg Cap 300 Mg PO HS Levothyroxine (Levothyroxine Sodium) 50 Mcg Tab 50 Mcg PO DAILY Eliquis (Apixaban) 5 Mg Tab 5 Mg PO BID Pantoprazole (Pantoprazole Sodium) 40 Mg Tab 40 Mg PO DAILY Pravastatin 40 Mg Tab 40 Mg PO DAILY Triamterene-Hydrochlorothiazide 37.5-25 Mg Tab 1 Tab PO DAILY Review of Systems Except as stated in HPI: all other systems reviewed are Neg Physical Exam Narrative GENERAL: Well-developed, overly nourished, in no acute distress, and non-ill appearing. SKIN: Focused skin assessment warm and dry. HEAD: Atraumatic. Normocephalic. EYES: Pupils equal and round. EOMI. No scleral icterus. No injection or drainage. ENT: No nasal bleeding or discharge. Mucous membranes pink and moist. Tympanic membranes pearly waller bilaterally. Posterior pharynx nonerythematous exudate. Uvula is midline. Patient reports tenderness to palpation to facial sinuses. NECK: Trachea midline. Supple. No nuclear rigidity. No cervical lymphadenopathy. CARDIOVASCULAR: Regular rate and rhythm. No murmur appreciated. RESPIRATORY: No accessory muscle use. No respiratory distress. Clear to auscultation. Breath sounds equal bilaterally. Patient speaking in full sentences easily without difficulty. Patient stating 97 percent on room air. MUSCULOSKELETAL: No obvious deformities. No clubbing. No cyanosis. No edema. Full range of motion. NEUROLOGICAL: Awake and alert. No obvious cranial nerve deficits. Motor grossly within normal limits. Normal speech. PSYCHIATRIC: Appropriate mood and affect; insight and judgment normal. Data Data Last Documented VS Vital Signs Date Time Temp Pulse Resp B/P Pulse Ox O2 Delivery O2 Flow Rate FiO2 04/15/17 17:59 98 04/15/17 17:54 104 18 159/77 Orders Chest, Single Ap (04/15/17 ) [facility] Medical Decision Making Medical Screen Exam Complete: Yes Emergency Medical Condition: Yes Interpretation(s) Chest x-ray read by the radiologist shows: No acute cardiopulmonary disease demonstrated. Differential Diagnosis Pneumonia, asthma exacerbation, pneumothorax, sinusitis, other Narrative Course Appears acute sinusitis with mild asthma exacerbation. No clinical evidence by history or evaluation to suspect meningitis and/or sepsis. There was no evidence to suggest deep abscess or cavernous sinus involvement. I discussed with the patient, diagnosis, plan of care, medications and to follow up with the patients primary physician. The patient was instructed to return if the worsens in anyway, especially if not tolerating fluids, increased sinus pain or swelling, worsening headache, persistent fever, difficulty swallowing or breathing, or as needed. The patient's asthma improved prior to arrival. The patient looks great and improved well with Nebulizer and steroid medication that she received prior to arrival. The patient is moving air well and in no distress nor significant dyspnea, and oxygen saturation is within normal limits. There is no clinical or radiological evidence to suggest pneumonia at this time. Diagnosis, plan of care and management were discussed with the patient who agreed with plan and feels better and ready to go home. The patient was instructed to return if worsen, worsening difficulty breathing or wheezing, persistent fever, chest pain or as needed. Patient in no obvious distress upon re-evaluation. All pertinent Radiology result(s) discussed with patient. Discussed patient with Dr. Ramirez prior to discharge, is in agreement with plan of care and disposition. Patient was asked if they wanted to speak to my attending, which the patient did not wish to do at this time. Any questions/concerns in reference to patient diagnosis/ condition discussed and clarified prior to patient's discharge. Reinforced sheer importance of close follow up with patient's primary physician or primary care clinic. Instructed patient to return to ED immediately, if symptoms return/ worsen. Pt showed understanding of above instructions. Further instructions and recommendations were detailed in discharge paperwork. Pt ambulated without difficulty out of ED at discharge. Diagnosis Primary Impression: Sinusitis Qualified Code: J01.90 - Acute sinusitis, recurrence not specified, unspecified location Additional Impression: Acute asthma exacerbation Qualified Code: J45.901 - Asthma with acute exacerbation, unspecified asthma severity Patient Instructions: Asthma (ED), General Instructions, Sinusitis (ED) Additional Instructions: Follow-up with your primary care physician this week for evaluation. Take all medication as prescribed. Return to the emergency department if symptoms get worse. Med/Other Pt SpecificInfo: Prescription(s) given Scripts Methylprednisolone Dosepak (Medrol Dosepak)4 Mg Dspk4 Mg PO DIRECTED #1 DSPK Ref 0 Per Pharmacist direction Prov:Sami Ramirez MD 04/15/17 Azithromycin (Zithromax Z-[place])250 Mg Phsr079 Mg PO DIRECTED #1 DSPK Ref 0 500 MG (2 tabs) day 1, then 1 tab days 2-5. Prov:Sami Ramirez MD 04/15/17 Albuterol 18 GM Inh (Ventolin Hfa 18 GM Inh)90 Mcg/Act Aer2 Puff INH Q4H PRN ( SHORTNESS OF BREATH) #1 INHALER Ref 0 Prov:Sami Ramirez MD 04/15/17 Disposition: 01 DISCHARGE HOME Condition: Stable Deven Morrison Apr 15, 2017 18:20
--- NOTE | 2017-04-15 19:27 | RADRPT ---
EXAM DATE/TIME: 04/15/2017 18:46 [facility] COMPARISON: CHEST SINGLE AP, November 24, 2015, 22:59. INDICATIONS : Cough and chest pain. MEDICAL HISTORY : Myocardial infarction. Hypertension SURGICAL HISTORY : Cholecystectomy. loop recorder ENCOUNTER: Initial ACUITY: 1 day PAIN SCORE: 5/10 LOCATION: Bilateral upper chest FINDINGS: A single view of the chest demonstrates the lungs to be symmetrically aerated without evidence of mas s, infiltrate or effusion. The cardiomediastinal contours are unremarkable. Osseous structures are intact. CONCLUSION: No acute cardiopulmonary disease demonstrated. Ry Kwon MD on April 15, 2017 at 19:25 Board Certified Radiologist. This report was verified electronically.
[2017-04-15] MEDS ORDERED: MEDR4PAK PO (19:43)
[2017-04-15] MEDS ORDERED: ZITHTAB PO (19:43)
[2017-04-15] MEDS ORDERED: VENTAER INH (19:43)
== END 2017-04-15 20:04 | disposition home or self-care (01) ==
LOC: NEPC 17:45
DX: J01.90 Acute sinusitis, unspecified (principal); J45.901 Unspecified asthma with (acute) exacerbation; I10 Essential (primary) hypertension; Z86.718 Personal history of other venous thrombosis and embolism; G47.30 Sleep apnea, unspecified; E03.9 Hypothyroidism, unspecified; K21.9 Gastro-esophageal reflux disease without esophagitis
CPT/HCPCS: 71010; 99284

== ENCOUNTER 2017-09-20 19:14 | Emergency (ER) | payer BC ==
[~2017-09-20] VITALS: Ht 162.6 cm; Wt 163.0 kg
[~2017-09-20 19:14] MED LIST changes: -ACET325T PO; -ALBUAER3 INH; +MEDR4PAK PO; +VENTAER INH; +ZITHTAB PO
[2017-09-20 19:17] VITALS: BP 147/81; PULSE 96; RESP 16; TEMP 97.9; O2SAT 99
[2017-09-20] MEDS ORDERED: SODIUM CHLORIDE 0.9% FLUSH 10 ML FLUSH IVF PRN (20:45)
--- NOTE | 2017-09-20 20:47 | PD ---
HPI Chief Complaint: Skin Problem Time Seen by Provider: 20:26 Travel History International Travel<30 days: No Contact w/Intl Traveler<30days: No Traveled to known affect area: No History of Present Illness HPI 52-year-old female presents to the emergency room for evaluation of right lower extremity redness and swelling that started last night. Patient states it started as a small red area last night and progressed significantly overnight. She denies any itching or seeing any bugs biting her. Throughout the day today it has become circumferential. She called her PCP who could not get her in so she went to an urgent care Center. Urgent care center sent her to the ED for ultrasound for evaluation of blood clot. It feels like a hot, burning iron. She has not taken anything for pain. She has tried elevating it but that was difficult to do while working. She has history of factor V Leiden deficiency and is on Eliquis. She denies chest pain or shortness of breath. She has history of stroke and splenic infarct. She has never had DVT or PE. PFSH Past Medical History Asthma: Yes Blood Disorders: No Anxiety: No Depression: No Heart Rhythm Problems: No Cancer: No Cardiovascular Problems: No (LOWER LEG EDEMA) High Cholesterol: No Chemotherapy: No Chest Pain: No Congestive Heart Failure: No COPD: No Diabetes: No Diminished Hearing: No Deep Vein Thrombosis: Yes Endocrine: No GERD: Yes Genitourinary: No Headaches: Yes Hepatitis: No Hiatal Hernia: No Hypertension: Yes (when she is sick) Immune Disorder: No Musculoskeletal: Yes (Right shoulder injury, OA) Neurologic: Yes (MIGRAINES, STROKE, BLOOD CLOTS, RESTLESS LEG SYNDROME) Psychiatric: Yes (DEPRESSION) Reproductive: No Respiratory: Yes (ASTHMA, SLEEP APNEA CPAP MACHINE) Immunizations Current: Yes Migraines: Yes Radiation Therapy: No Sleep Apnea: No Thyroid Disease: Yes (HYPOTHYROID) ?: Not Menopausal: Yes : 0 Para: 0 Miscarriage: 0 : 0 Past Surgical History Abdominal Surgery: Yes (CHOLECYSTECTOMY) AICD: No Arteriovenous Shunt: No Body Medical Devices: PLATE RIGHT LEG, SCREWS RIGHT ANKLE Cardiac Surgery: No Cholecystectomy: Yes (10 YEARS AGO.) Ear Surgery: No Endocrine Surgery: No Eye Surgery: No Genitourinary Surgery: No Gynecologic Surgery: No Insulin Pump: No Joint Replacement: No Oral Surgery: No Pacemaker: No Thoracic Surgery: No Other Surgery: Yes (CHOLECYSTECTOMY) Social History Alcohol Use: No Tobacco Use: No Substance Use: No Allergies-Medications (Allergen,Severity, Reaction): Coded Allergies: Fish Containing Products (Unverified Allergy, Severe, SOB, 06/18/17) aspartame (Unverified Allergy, Severe, NAUSEA/VOMITING, FACIAL SWELLING, ) divalproex sodium (Unverified Allergy, Severe, rash, 06/18/17) *MDRO Multi-Drug Resistant Organism (Verified Adverse Reaction, Unknown, ) MRSA (arm) - 06/16/16 Reported Meds & Prescriptions Reported Meds & Active Scripts Active Medrol Dosepak (Methylprednisolone) 4 Mg Dspk 4 Mg PO DIRECTED Per Pharmacist direction Zithromax Z-[place] (Azithromycin) 250 Mg Dspk 250 Mg PO DIRECTED 500 MG (2 tabs) day 1, then 1 tab days 2-5. Ventolin Hfa 18 GM Inh (Albuterol Sulfate) 90 Mcg/Act Aer 2 Puff INH Q4H PRN Qlexnsjldu-Yvixgukgpdxxu-Qoutfbwp 50-325-40 Mg Tab 1 Tab PO Q8H PRN Reported Cyanocobalamin Inj (Cyanocobalamin) 1,000 Mcg/Ml Inj 1,000 Mcg IM Q30D Gabapentin 300 Mg Cap 300 Mg PO HS Levothyroxine (Levothyroxine Sodium) 50 Mcg Tab 50 Mcg PO DAILY Eliquis (Apixaban) 5 Mg Tab 5 Mg PO BID Pantoprazole (Pantoprazole Sodium) 40 Mg Tab 40 Mg PO DAILY Pravastatin 40 Mg Tab 40 Mg PO DAILY Triamterene-Hydrochlorothiazide 37.5-25 Mg Tab 1 Tab PO DAILY Review of Systems Except as stated in HPI: all other systems reviewed are Neg Physical Exam Narrative GENERAL: Well-nourished, morbidly obese female in no acute distress. Afebrile. Ambulatory. SKIN: Focused skin assessment warm/dry. There is a large area of circumferential erythema to the right ankle. It is extremely tender to palpation. Blanchable. No obvious breaks in skin. HEAD: Normocephalic. EYES: No scleral icterus. No injection or drainage. NECK: Supple, trachea midline. No JVD or lymphadenopathy. CARDIOVASCULAR: Regular rate and rhythm without murmurs, gallops, or rubs. RESPIRATORY: Breath sounds equal bilaterally. No accessory muscle use. MUSCULOSKELETAL: No cyanosis. 2+ pitting edema bilaterally. 2 posterior cells pedis pulse on the right. Full range of motion. Data Data Last Documented VS Vital Signs Date Time Temp Pulse Resp B/P (MAP) Pulse Ox O2 Delivery O2 Flow Rate FiO2 09/20/17 19:17 97.9 96 16 147/81 (103) 99 Room Air Orders Orders Complete Blood Count With Diff (09/20/17 20:38) Basic Metabolic Panel (Bmp) (09/20/17 20:38) Act Partial Throm Time (Ptt) (09/20/17 20:38) Prothrombin Time / Inr (Pt) (09/20/17 20:38) Iv Access Insert/Monitor (09/20/17 20:38) Sodium Chloride 0.9% Flush (Ns Flush) (09/20/17 20:45) Us Leg Venous Doppler (09/20/17 ) [facility] Medical Decision Making Medical Screen Exam Complete: Yes Emergency Medical Condition: Yes Medical Record Reviewed: Yes Differential Diagnosis Cellulitis, DVT, venous insufficiency, compartment syndrome unlikely Narrative Course 52-year-old female with history of factor 5-lead and deficiency presents to the emergency room for evaluation of right lower extremity redness and swelling for the past day. Patient denies history of PE or DVT but has had stroke and splenic infarcts. She is on Eliquis. States it started off as a small red area and quickly progressed today. She reports burning pain. The exam reveals circumstantial area of erythema to the right ankle. No obvious breaks in skin. Right lower extremity is neurovascularly intact with 2+ radial pulse. Full range of motion. Basic labs obtained. Ultrasound ordered and pending. Patient signed out to nighttime provider. Condition: Stable Lizet Frost Sep 20, 2017 20:47
[2017-09-20] MEDS ORDERED: VANCOMYCIN INJ 2,250 MG in SODIUM CHLORID 0.9% 500 ML INJ 500 ML IV ONE (21:00)
[2017-09-20 21:26] LABS: AUTOMATED NEUTROPHIL # 6.9 TH/MM3 (1.8-7.7); BASOPHIL # 0.1 TH/MM3 (0-0.2); BASOPHIL % 0.9 % (0.0-2.0); EOSINOPHIL # 0.1 TH/MM3 (0-0.4); EOSINOPHIL % 1.1 % (0.0-4.0); HEMATOCRIT 37.5 % (35.0-46.0); HEMO FLAGS DIFF FINAL; LYMPH % 20.7 % (9.0-44.0); LYMPHOCYTE # 2.1 TH/MM3 (1.0-4.8); MEAN CELL VOLUME 81.9 FL (80.0-100.0); MEAN CORPUSCULAR HEMOGLOBIN 26.7 PG (27.0-34.0); MEAN CORPUSCULAR HGB CONC 32.6 % (32.0-36.0); MONO % 8.5 % (0.0-8.0); NEUT % 68.8 % (16.0-70.0); PLATELET COUNT 165 TH/MM3 (150-450); RED BLOOD COUNT 4.58 MIL/MM3 (4.00-5.30); RED CELL DISTRIBUTION WIDTH 16.6 % (11.6-17.2); WHITE BLOOD COUNT 10.1 TH/MM3 (4.0-11.0)
[2017-09-20 21:40] LABS: APTT (PATIENT) 21.9 SEC (24.3-30.1); INTERNATIONAL NORMALIZED RATIO 0.9 RATIO
[2017-09-20 21:54] LABS: BICARBONATE 30.7 MEQ/L (21.0-32.0); POTASSIUM 3.9 MEQ/L (3.5-5.1)
--- NOTE | 2017-09-20 22:31 | RADRPT ---
EXAM DATE/TIME: 09/20/2017 21:06 [place] COMPARISON: No previous studies available for comparison. INDICATIONS : Right leg pain, swelling and redness MEDICAL HISTORY : Gastroesophageal reflux disease. Hypothyroidism. Deep venous thrombosis. Factor V. Cerebrovascular accident. Asthma. RLS. Sleep apnea. Depression. MRSA. SURGICAL HISTORY : Cholecystectomy. Right leg ORIF. Uight upper arm repair. ENCOUNTER: Initial ACUITY: 1 day PAIN SCORE: 4/10 LOCATION: Right leg. TECHNIQUE: Venous ultrasound of the leg was performed from the inguinal ligament to the proximal calf. Real-layne e, color Doppler and spectral tracing, compression and augmentation techniques were used. FINDINGS: There is normal compressibility of the deep venous system from the inguinal region to the proximal ca lf. No echogenic clot is seen in the lumen of the common femoral, femoral, popliteal, and posterior tibial veins. There is a normal response of the venous system to proximal and distal augmentation an d respiration. CONCLUSION: No DVT. Ry Saavedra MD on September 20, 2017 at 22:29 Board Certified Radiologist. This report was verified electronically.
--- NOTE | 2017-09-20 23:24 | PD ---
Physical Exam Date Seen by Provider: Sep 20, 2017 Data Data Last Documented VS Vital Signs Date Time Temp Pulse Resp B/P (MAP) Pulse Ox O2 Delivery O2 Flow Rate FiO2 09/20/17 19:17 97.9 96 16 147/81 (103) 99 Room Air Orders Orders Complete Blood Count With Diff (09/20/17 20:38) Basic Metabolic Panel (Bmp) (09/20/17 20:38) Act Partial Throm Time (Ptt) (09/20/17 20:38) Prothrombin Time / Inr (Pt) (09/20/17 20:38) Iv Access Insert/Monitor (09/20/17 20:38) Sodium Chloride 0.9% Flush (Ns Flush) (09/20/17 20:45) Us Leg Venous Doppler (09/20/17 ) Vancomycin Inj (Vancomycin Inj) (09/20/17 21:00) Labs Laboratory Tests Test 09/20/17 21:05 White Blood Count 10.1 TH/MM3 Red Blood Count 4.58 MIL/MM3 Hemoglobin 12.2 GM/DL Hematocrit 37.5 % Mean Corpuscular Volume 81.9 FL Mean Corpuscular Hemoglobin 26.7 PG Mean Corpuscular Hemoglobin Concent 32.6 % Red Cell Distribution Width 16.6 % Platelet Count 165 TH/MM3 Mean Platelet Volume 7.5 FL Neutrophils (%) (Auto) 68.8 % Lymphocytes (%) (Auto) 20.7 % Monocytes (%) (Auto) 8.5 % Eosinophils (%) (Auto) 1.1 % Basophils (%) (Auto) 0.9 % Neutrophils # (Auto) 6.9 TH/MM3 Lymphocytes # (Auto) 2.1 TH/MM3 Monocytes # (Auto) 0.9 TH/MM3 Eosinophils # (Auto) 0.1 TH/MM3 Basophils # (Auto) 0.1 TH/MM3 CBC Comment DIFF FINAL Differential Comment Prothrombin Time 10.0 SEC Prothromb Time International Ratio 0.9 RATIO Activated Partial Thromboplast Time 21.9 SEC Blood Urea Nitrogen 17 MG/DL Creatinine 1.30 MG/DL Random Glucose 110 MG/DL Calcium Level 8.8 MG/DL Sodium Level 135 MEQ/L Potassium Level 3.9 MEQ/L Chloride Level 99 MEQ/L Carbon Dioxide Level 30.7 MEQ/L Anion Gap 5 MEQ/L Estimat Glomerular Filtration Rate 43 ML/MIN [facility] Medical Record Reviewed: Yes Supervised Visit with FREDI: Yes Interpretation(s) Vital Signs Date Time Temp Pulse Resp B/P (MAP) Pulse Ox O2 Delivery O2 Flow Rate FiO2 09/20/17 19:17 97.9 96 16 147/81 (103) 99 Room Air Laboratory Tests Test 09/20/17 21:05 White Blood Count 10.1 TH/MM3 (4.0-11.0) Red Blood Count 4.58 MIL/MM3 (4.00-5.30) Hemoglobin 12.2 GM/DL (11.6-15.3) Hematocrit 37.5 % (35.0-46.0) Mean Corpuscular Volume 81.9 FL (80.0-100.0) Mean Corpuscular Hemoglobin 26.7 PG (27.0-34.0) Mean Corpuscular Hemoglobin Concent 32.6 % (32.0-36.0) Red Cell Distribution Width 16.6 % (11.6-17.2) Platelet Count 165 TH/MM3 (150-450) Mean Platelet Volume 7.5 FL (7.0-11.0) Neutrophils (%) (Auto) 68.8 % (16.0-70.0) Lymphocytes (%) (Auto) 20.7 % (9.0-44.0) Monocytes (%) (Auto) 8.5 % (0.0-8.0) Eosinophils (%) (Auto) 1.1 % (0.0-4.0) Basophils (%) (Auto) 0.9 % (0.0-2.0) Neutrophils # (Auto) 6.9 TH/MM3 (1.8-7.7) Lymphocytes # (Auto) 2.1 TH/MM3 (1.0-4.8) Monocytes # (Auto) 0.9 TH/MM3 (0-0.9) Eosinophils # (Auto) 0.1 TH/MM3 (0-0.4) Basophils # (Auto) 0.1 TH/MM3 (0-0.2) CBC Comment DIFF FINAL Differential Comment Prothrombin Time 10.0 SEC (9.8-11.6) Prothromb Time International Ratio 0.9 RATIO Activated Partial Thromboplast Time 21.9 SEC (24.3-30.1) Blood Urea Nitrogen 17 MG/DL (7-18) Creatinine 1.30 MG/DL (0.50-1.00) Random Glucose 110 MG/DL (74-106) Calcium Level 8.8 MG/DL (8.5-10.1) Sodium Level 135 MEQ/L (136-145) Potassium Level 3.9 MEQ/L (3.5-5.1) Chloride Level 99 MEQ/L (98-107) Carbon Dioxide Level 30.7 MEQ/L (21.0-32.0) Anion Gap 5 MEQ/L (5-15) Estimat Glomerular Filtration Rate 43 ML/MIN (>89) Last Impressions Lower Extremity Ultrasound 09/20/17 0000 Signed Impressions: Service Date/Time: Wednesday, September 20, 2017 21:06 - CONCLUSION: No DVT. Ry Saavedra MD Differential Diagnosis DVT, cellulitis Narrative Course I, Dr. Jarquin, have reviewed the advance practice practitioner's documentation and am in agreement, met with the patient face to face, made the diagnosis, and the medical decision making was done by me. *My assessment and Findings: Patient is a 52-year-old female who presents to emergency room complaints of right lower extremity swelling and redness last night. Patient reports that she noticed initially an area of redness on her calvillo, reports that now the area is circumferential. Patient reports no fevers or chills, reports that she did call her primary care doctor who told her to go to an urgent care center. Patient was seen at urgent care center and told her to come to the emergency room for an ultrasound of her lower extremity. Patient reports that she is on Eliquis as she does have history of factor V Leiden deficiency. Patient with no fever or chills, tetanus is up-to-date. During the course of her hospital stay, lab work was obtained. CBC & BMP Diagram 09/20/17 21:05 Calcium Level 8.8 Patient's blood work is benign. Her cr was elevated at 1.30 Last Impressions Lower Extremity Ultrasound 09/20/17 0000 Signed Impressions: Service Date/Time: Wednesday, September 20, 2017 21:06 - CONCLUSION: No DVT. Ry Saavedra MD Ultrasound showed no evidence of DVT. Patient was given IV vancomycin 1 dose. Plan to start patient on antibiotics as outpatient. Signs and symptoms of when to return to the emergency room was reviewed patient in detail. In the meantime, patient will follow-up with her primary care doctor. Patient happy with plan of care. Diagnosis Primary Impression: Cellulitis of leg, right Patient Instructions: General Instructions Additional Instruction: Please provide patient with a copy of their lab work and studies at discharge* * Please follow up with your primary care doctor in 2-3 days Return to the ER if symptoms worsen or progress or if you develop fevers or chills Return to the ER as needed Please take all antibiotics prescribed Med/Other Pt SpecificInfo: Prescription(s) given Scripts Sulfamethoxazole-Trimethoprim (Bactrim DS) 800-160 Mg Tab 1 TAB PO BID for Infection, #20 TAB 0 Refills Prov: Kandace Jarquin DO 09/20/17 Cephalexin (Keflex) 500 Mg Cap 500 MG PO Q6H for Infection for 7 Days, #28 CAP 0 Refills Prov: Kandace Jarquin DO 09/20/17 Disposition: 01 DISCHARGE HOME Condition: Stable Kandace Jarquin DO Sep 20, 2017 23:24
[2017-09-20] MEDS ORDERED: BACT800T5 PO (23:28)
[2017-09-20] MEDS ORDERED: CEPH-460 PO (23:28)
== END 2017-09-21 01:19 | disposition home or self-care (01) ==
LOC: NEPD 19:14
DX: L03.115 Cellulitis of right lower limb (principal); E03.9 Hypothyroidism, unspecified; D68.51 Activated protein C resistance; Z79.01 Long term (current) use of anticoagulants
CPT/HCPCS: 80048; 85025; 85610; 85730; 93971; 96374; 99284; J3370; J7040

== ENCOUNTER 2017-10-16 18:58 | Emergency (ER) | payer BC ==
[~2017-10-16] VITALS: Ht 167.6 cm; Wt 163.6 kg
[~2017-10-16 18:58] MED LIST changes: +BACT800T5 PO; +CEPH-460 PO; -CYAN1000P IM; -MEDR4PAK PO; -ZITHTAB PO
[2017-10-16 19:02] VITALS: BP 197/89; PULSE 72; RESP 16; TEMP 98; O2SAT 100
[2017-10-16 19:41] VITALS: BP 168/88
[2017-10-16] MEDS ORDERED: PERC5TAB12 PO (19:50)
[2017-10-16] MEDS ORDERED: PRED20 PO (19:50)
--- NOTE | 2017-10-16 20:33 | PD ---
HPI Chief Complaint: Edema Time Seen by Provider: 19:31 Travel History International Travel<30 days: No Contact w/Intl Traveler<30days: No Traveled to known affect area: No History of Present Illness HPI The patient was seen and examined in the presence of the nurse. This patient complains of pain in her left thumb. Duration 4 days. Severity is moderate. It's worse with movement. There is been no injury. She saw her primary physician for this and had an x-ray which was negative per her report. No fever. No pain in any other areas or joints. PFSH Past Medical History Asthma: Yes Blood Disorders: No Anxiety: No Depression: No Heart Rhythm Problems: No Cancer: No High Cholesterol: Yes Chemotherapy: No Chest Pain: No Congestive Heart Failure: No COPD: No Diabetes: No Diminished Hearing: No Deep Vein Thrombosis: Yes Endocrine: No Gastrointestinal Disorders: Yes (GERD) GERD: Yes Genitourinary: No Headaches: Yes Hepatitis: No Hiatal Hernia: No Hypertension: Yes Immune Disorder: No Musculoskeletal: Yes (Right shoulder injury, OA) Neurologic: Yes (MIGRAINES, STROKE, BLOOD CLOTS, RESTLESS LEG SYNDROME) Psychiatric: Yes (DEPRESSION) Reproductive: No Respiratory: Yes (ASTHMA, SLEEP APNEA CPAP MACHINE) Immunizations Current: Yes Migraines: Yes Radiation Therapy: No Sleep Apnea: No Thyroid Disease: Yes (HYPOTHYROID) Tetanus Vaccination: < 5 Years Influenza Vaccination: Yes ?: Not Menopausal: Yes : 0 Para: 0 Miscarriage: 0 : 0 Past Surgical History Abdominal Surgery: Yes (CHOLECYSTECTOMY) AICD: No Arteriovenous Shunt: No Body Medical Devices: PLATE RIGHT LEG, SCREWS RIGHT ANKLE Cardiac Surgery: No Cholecystectomy: Yes (10 YEARS AGO.) Ear Surgery: No Endocrine Surgery: No Eye Surgery: No Genitourinary Surgery: No Gynecologic Surgery: No Insulin Pump: No Joint Replacement: No Oral Surgery: No Pacemaker: No Thoracic Surgery: No Other Surgery: Yes (CHOLECYSTECTOMY) Social History Alcohol Use: No Tobacco Use: No Substance Use: No Allergies-Medications (Allergen,Severity, Reaction): Coded Allergies: Fish Containing Products (Unverified Allergy, Severe, SOB, 09/20/17) aspartame (Unverified Allergy, Severe, NAUSEA/VOMITING, FACIAL SWELLING, 09/20/17) divalproex sodium (Unverified Allergy, Severe, rash, 09/20/17) *MDRO Multi-Drug Resistant Organism (Verified Adverse Reaction, Unknown, 09/20/17) MRSA (arm) - 06/16/16 Reported Meds & Prescriptions Reported Meds & Active Scripts Active Prednisone 20 Mg Tab 40 Mg PO DAILY Take 40 mg (2 tablets) daily for 5 days Percocet (Oxycodone-Acetaminophen) 5-325 mg Tab 1 Tab PO Q6H PRN Keflex (Cephalexin) 500 Mg Cap 500 Mg PO Q6H 7 Days Ventolin Hfa 18 GM Inh (Albuterol Sulfate) 90 Mcg/Act Aer 2 Puff INH Q4H PRN Qutauilbxt-Ofvcuhznbpdoh-Qkhywzhf 50-325-40 Mg Tab 1 Tab PO Q8H PRN Reported Gabapentin 300 Mg Cap 300 Mg PO HS Levothyroxine (Levothyroxine Sodium) 50 Mcg Tab 50 Mcg PO DAILY Eliquis (Apixaban) 5 Mg Tab 5 Mg PO BID Pantoprazole (Pantoprazole Sodium) 40 Mg Tab 40 Mg PO DAILY Pravastatin 40 Mg Tab 40 Mg PO DAILY Triamterene-Hydrochlorothiazide 37.5-25 Mg Tab 1 Tab PO DAILY Review of Systems General / Constitutional: No: Fever HENT: No: Headaches Cardiovascular: No: Chest Pain or Discomfort Respiratory: No: Cough Physical Exam Narrative Gen.: Morbidly obese middle-aged female with left thumb pain SKIN: Focused skin assessment reveals no rash or ulcers. Skin is warm and dry. Palpation shows no induration or nodules. Psych: Normal mood and affect. Normal insight and judgment. Left hand: Patient has some tenderness and swelling about the first MCP joint. No clinical suspicion of infection here. There is no warmth or fluctuance or drainage or erythema. She has pain with active and passive movement of the joint Other fingers are normal No other joints are inflamed Wrist is not inflamed Hand is neurovascularly intact. No compartments are tense Data Data Last Documented VS Vital Signs Date Time Temp Pulse Resp B/P (MAP) Pulse Ox O2 Delivery O2 Flow Rate FiO2 10/16/17 19:41 168/88 (114) 10/16/17 19:02 98.0 72 16 100 Room Air Orders Orders Splint Or Brace Apply/Monitor (10/16/17 19:48) MDM Medical Decision Making Medical Screen Exam Complete: Yes Emergency Medical Condition: Yes Medical Record Reviewed: Yes Differential Diagnosis Gout, rheumatoid, carpal tunnel Narrative Course I have reviewed the patient's electronic medical record. Presentation here seems most consistent with acute inflammatory process of the left first MCP joint My leading suspicion is gout but it could be several other things No clinical suspicion of infection and there is been no trauma and she had a negative x-ray I put her in a Velcro wrist splint to give the region a bit of support I wrote her some medication for pain I wrote her some prednisone for anti-inflammatory effect Recommend she take acid blocking medicine help limit GI side effects given the fact she takes a blood thinner and she agrees to do so She should ice and elevate and rest the area and follow-up with her physician or hand physician Initial blood pressure quite high but currently 160s systolic Diagnosis Primary Impression: Inflammatory arthritis Additional Impression: Accelerated hypertension Additional Instructions: Rest and ice and elevate left thumb Wear splint The patient was warned about potential sedation for the medications they will receive on prescription. Use acid blocking medication while on steroids Follow-up with primary care or hand physician Check and record blood pressure daily Med/Other Pt SpecificInfo: Other Scripts Prednisone (Prednisone) 20 Mg Tab 40 MG PO DAILY, #10 TAB 0 Refills Take 40 mg (2 tablets) daily for 5 days Prov: Venkatesh Swanson MD 10/16/17 Oxycodone-Acetaminophen (Percocet) 5-325 mg Tab 1 TAB PO Q6H Y for PAIN, #15 TAB 0 Refills Prov: Venkatesh Swanson MD 10/16/17 Disposition: 01 DISCHARGE HOME Condition: Stable Venkatesh Swanson MD Oct 16, 2017 20:33
== END 2017-10-16 20:57 | disposition home or self-care (01) ==
LOC: NEPD 18:58
DX: M06.4 Inflammatory polyarthropathy (principal); I10 Essential (primary) hypertension; E66.01 Morbid (severe) obesity due to excess calories; J45.909 Unspecified asthma, uncomplicated; E78.00 Pure hypercholesterolemia, unspecified; K21.9 Gastro-esophageal reflux disease without esophagitis; G25.81 Restless legs syndrome; E03.9 Hypothyroidism, unspecified; Z86.718 Personal history of other venous thrombosis and embolism
CPT/HCPCS: 99284; L3908

== ENCOUNTER 2017-11-16 10:54 | Emergency (ER) | payer BC ==
[~2017-11-16] VITALS: Ht 167.6 cm; Wt 155.0 kg
[~2017-11-16 10:54] MED LIST changes: -BACT800T5 PO; +PERC5TAB12 PO; +PRED20 PO
[2017-11-16 10:57] VITALS: BP 168/86; PULSE 108; RESP 16; TEMP 101.9; O2SAT 98
[2017-11-16] MEDS: RESP: ALBUTEROL 2.5 MG/3 ML NEB (SCH) INH (12:41)
[2017-11-16] MEDS ORDERED: PROC10TA PO (13:13)
[2017-11-16] MEDS ORDERED: OSEL75 PO (13:13)
[2017-11-16] MEDS ORDERED: PRED20 PO (13:13)
--- NOTE | 2017-11-16 13:14 | PD ---
HPI Chief Complaint: Cold / Flu Symptoms Time Seen by Provider: 12:21 Travel History International Travel<30 days: No Contact w/Intl Traveler<30days: No Traveled to known affect area: No History of Present Illness HPI 52-year-old female complains of muscle aches and pains fever and cough for about 1 day. Positive sick contacts at work. Patient has a history of asthma and has been using inhalers at home with only minimal benefit. No chest pain. No vomiting. Patient reports generalized cephalgia. Positive nausea. Severity moderate. PFSH Past Medical History Asthma: Yes Blood Disorders: No Anxiety: No Depression: No Heart Rhythm Problems: No Cancer: No High Cholesterol: Yes Chemotherapy: No Chest Pain: No Congestive Heart Failure: No COPD: No Diabetes: No Diminished Hearing: No Deep Vein Thrombosis: Yes Endocrine: No Gastrointestinal Disorders: Yes (GERD) GERD: Yes Genitourinary: No Headaches: Yes Hepatitis: No Hiatal Hernia: No Hypertension: Yes Immune Disorder: No Musculoskeletal: Yes (Right shoulder injury, OA) Neurologic: Yes (MIGRAINES, STROKE, BLOOD CLOTS, RESTLESS LEG SYNDROME) Psychiatric: Yes (DEPRESSION) Reproductive: No Respiratory: Yes (ASTHMA, SLEEP APNEA CPAP MACHINE) Immunizations Current: Yes Migraines: Yes Radiation Therapy: No Sleep Apnea: No Thyroid Disease: Yes (HYPOTHYROID) ?: Not Menopausal: Yes : 0 Para: 0 Miscarriage: 0 : 0 Past Surgical History Abdominal Surgery: Yes (CHOLECYSTECTOMY) AICD: No Arteriovenous Shunt: No Body Medical Devices: PLATE RIGHT LEG, SCREWS RIGHT ANKLE Cardiac Surgery: No Cholecystectomy: Yes (10 YEARS AGO.) Ear Surgery: No Endocrine Surgery: No Eye Surgery: No Genitourinary Surgery: No Gynecologic Surgery: No Insulin Pump: No Joint Replacement: No Oral Surgery: No Pacemaker: No Thoracic Surgery: No Other Surgery: Yes (CHOLECYSTECTOMY) Social History Alcohol Use: No Tobacco Use: No Substance Use: No Allergies-Medications (Allergen,Severity, Reaction): Coded Allergies: Fish Containing Products (Unverified Allergy, Severe, SOB, 11/16/17) aspartame (Unverified Allergy, Severe, NAUSEA/VOMITING, FACIAL SWELLING, ) divalproex sodium (Unverified Allergy, Severe, rash, 11/16/17) *MDRO Multi-Drug Resistant Organism (Verified Adverse Reaction, Unknown, ) MRSA (arm) - 06/16/16 Reported Meds & Prescriptions Reported Meds & Active Scripts Active Prednisone 20 Mg Tab 40 Mg PO DAILY Take 40 mg (2 tablets) daily for 5 days Percocet (Oxycodone-Acetaminophen) 5-325 mg Tab 1 Tab PO Q6H PRN Keflex (Cephalexin) 500 Mg Cap 500 Mg PO Q6H 7 Days Ventolin Hfa 18 GM Inh (Albuterol Sulfate) 90 Mcg/Act Aer 2 Puff INH Q4H PRN Alrbogxbcn-Ghisrjmcowzei-Zfiuwdfw 50-325-40 Mg Tab 1 Tab PO Q8H PRN Reported Gabapentin 300 Mg Cap 300 Mg PO HS Levothyroxine (Levothyroxine Sodium) 50 Mcg Tab 50 Mcg PO DAILY Eliquis (Apixaban) 5 Mg Tab 5 Mg PO BID Pantoprazole (Pantoprazole Sodium) 40 Mg Tab 40 Mg PO DAILY Pravastatin 40 Mg Tab 40 Mg PO DAILY Triamterene-Hydrochlorothiazide 37.5-25 Mg Tab 1 Tab PO DAILY Review of Systems Except as stated in HPI: all other systems reviewed are Neg General / Constitutional: Positive: Fever, Chills Physical Exam Narrative GENERAL: 52-year-old female pleasant BMI is 55 no acute distress SKIN: Warm and dry. HEAD: Atraumatic. Normocephalic. EYES: Pupils equal and round. No scleral icterus. No injection or drainage. ENT: No nasal bleeding or discharge. Mucous membranes pink and moist. Posterior oropharynx widely patent. No exudate or asymmetry. NECK: Trachea midline. No JVD. CARDIOVASCULAR: Minimal tachycardia. Regular. RESPIRATORY: Wheezing present bilaterally. No significant tachypnea. GASTROINTESTINAL: Abdomen soft, non-tender, nondistended. Hepatic and splenic margins not palpable. MUSCULOSKELETAL: Extremities without clubbing, cyanosis, or edema. No obvious deformities. NEUROLOGICAL: Awake and alert. No obvious cranial nerve deficits. Motor grossly within normal limits. Five out of 5 muscle strength in the arms and legs. Normal speech. PSYCHIATRIC: Appropriate mood and affect; insight and judgment normal. Data Data Last Documented VS Vital Signs Date Time Temp Pulse Resp B/P (MAP) Pulse Ox O2 Delivery O2 Flow Rate FiO2 11/16/17 12:41 97 11/16/17 10:57 101.9 108 16 168/86 (113) Room Air Vital signs reviewed Orders Orders Influenzae A/B Antigen (1/13/18 11:19) Albuterol Neb (Albuterol Neb) (11/16/17 12:45) MDM Medical Decision Making Medical Screen Exam Complete: Yes Emergency Medical Condition: Yes Medical Record Reviewed: Yes Differential Diagnosis influenza, pneumonia, sepsis, tonsillitis Narrative Course Presentation is pathognomonic for influenza this season. The patient will be prescribed Tamiflu despite the negative flu assay which in this scenario is considered a false negative. Albuterol nebulizers [facility]. We will send home with steroids Tamiflu and Compazine as the patient has a headache and some nausea. Fever and tachycardia are to be expected together as is the case and today's presentation is such that additional further workup is considered clinically not indicated. Meningitis is considered reasonably safely excluded based on clinical exam. Diagnosis Primary Impression: Influenza Additional Impressions: Wheezing Cephalgia Qualified Codes: R51 - Headache Referrals: Primary Care Physician 2 days Med/Other Pt SpecificInfo: Prescription(s) given Scripts Oseltamivir (Tamiflu) 75 Mg Cap 75 MG PO BID for Mgmt Viral Infection for 7 Days, #14 CAP 0 Refills Prov: Karson Magaña MD 11/16/17 Prochlorperazine Maleate (Prochlorperazine Maleate) 10 Mg Tab 10 MG PO Q6H Y for MIGRAINE HEADACHE, #10 TAB 0 Refills Prov: Karson Magaña MD 11/16/17 Prednisone (Prednisone) 20 Mg Tab 40 MG PO DAILY, #10 TAB 0 Refills Take 40 mg (2 tablets) daily for 5 days Prov: Karson Magaña MD 11/16/17 Disposition: 01 DISCHARGE HOME Condition: Stable Karsno Magaña MD Nov 16, 2017 13:14
[2017-11-16] MEDS ORDERED: PROCHLORPERAZINE MALEATE 10 MG TAB PO ONE (13:30)
[2017-11-16] MEDS ORDERED: ACETAMINOPHEN 325 MG TAB PO ONE (13:30)
== END 2017-11-16 14:05 | disposition home or self-care (01) ==
LOC: NEPD 10:54
DX: J11.1 Influenza due to unidentified influenza virus with other respiratory manifestations (principal); R51 Headache; R00.0 Tachycardia, unspecified; J45.909 Unspecified asthma, uncomplicated; E78.00 Pure hypercholesterolemia, unspecified; K21.9 Gastro-esophageal reflux disease without esophagitis; I10 Essential (primary) hypertension; G25.81 Restless legs syndrome; Z86.718 Personal history of other venous thrombosis and embolism
CPT/HCPCS: 87804; 94640; 94664; 99284; J7613; Q0164

== ENCOUNTER → 2018-03-05 | Outpatient (CLI) | payer BC ==
[~2018-03-05] VITALS: Ht 167.6 cm; Wt 160.7 kg
[~2018-03-05] MED LIST changes: -CEPH-460 PO; +CHLORHEXIDINE GLUCONATE 2 % 1 PACK (2 CLOTHS) TOPICAL PRN; +DEXTROSE 5% IN WATE 1000ML INJ 1,000 ML IV SCH; +LACTATED RINGER'S 1000 ML IV PRN; +LIDOCAINE HCL 1% PF 5 ML SYRINGE OTHER ONE; +METOPROLOL TARTRATE 25 MG TAB PO PRN; -PERC5TAB12 PO; +POVIDONE IODINE 5% (ANTISEPSIS KIT) 4 APPLICATIONS EACH NARE PRN; -PRED20 PO; +PROPOFOL 200 MG/20 ML AMP IV ONE; +SODIUM CHLORID 0.9% 500 ML IV PRN
[2018-03-05 11:01] LABS: BASOPHIL % 0.3 % (0.0-2.0); EOSINOPHIL # 0.1 TH/MM3 (0-0.4); EOSINOPHIL % 1.3 % (0.0-4.0); HEMATOCRIT 34.8 % (35.0-46.0); HEMOGLOBIN 11.3 GM/DL (11.6-15.3); LYMPHOCYTE # 2.9 TH/MM3 (1.0-4.8); MEAN CELL VOLUME 82.2 FL (80.0-100.0); MEAN CORPUSCULAR HEMOGLOBIN 26.7 PG (27.0-34.0); MEAN CORPUSCULAR HGB CONC 32.4 % (32.0-36.0); MEAN PLATELET VOLUME 7.7 FL (7.0-11.0); MONO % 7.3 % (0.0-8.0); MONOCYTE # 0.7 TH/MM3 (0-0.9); NEUT % 61.1 % (16.0-70.0); PLATELET COUNT 155 TH/MM3 (150-450); RED BLOOD COUNT 4.24 MIL/MM3 (4.00-5.30); RED CELL DISTRIBUTION WIDTH 18.7 % (11.6-17.2); WHITE BLOOD COUNT 9.8 TH/MM3 (4.0-11.0)
--- NOTE | 2018-03-05 11:16 | PD.HP.UP ---
H&P Update Note The Pre-Admit History and Physical Examination regarding the above named patient was reviewed (including, but not limited to, vital signs, heart, lungs, co-morbid conditions), and upon re-examination it is noted that: the patient's condition has not significantly changed since the last examination. William Sanchez MD March 05, 2018 11:16
[2018-03-05 12:40] VITALS: BP 136/71; PULSE 71; RESP 18; O2SAT 99
--- NOTE | 2018-03-05 13:05 | MR ---
cc: William Sanchez MD DATE: 03/05/2018 DATE OF PROCEDURE: 03/05/2018 PREOPERATIVE DIAGNOSIS: Anemia, family history of colon cancer, colon cancer screening. PROCEDURE PERFORMED: Colonoscopy to cecum. POSTOPERATIVE DIAGNOSES: 1. Normal cecum and ileocecal valve. 2. Anemia. 3. Family history of colon cancer. 4. Normal distal colon. SURGEON: William Sanchez MD DESCRIPTION OF PROCEDURE: The patient was placed in the left lateral decubitus position. After adequate anesthesia sedation, rectal exam confirmed the emptiness of the rectal vault. The Pentax colonoscope was then introduced into the rectum and advanced easily under direct vision through the proximal colon until the cecum was identified. The ileocecal valve was normal. There were no vascular abnormalities noted in the cecum. The colonoscope was then gradually withdrawn, visualizing mucosal surfaces throughout the distal colon. No inflammatory changes were seen. No polyps were seen. There was one lipoma in the ascending colon, but this was felt to be pretty unremarkable. No sign of any bleeding was noted. Very little diverticular disease was seen throughout the rectosigmoid, and rectum and anal canal were unremarkable. The patient tolerated the procedure quite well and was brought to the recovery room in stable condition. William Sanchez MD AHR/KD , 12:35 PM , 01:04 PM
== END ==
LOC: HSDC 09:10
PROVIDERS: ATTEND Colon & Rectal Surgery
DX: D64.9 Anemia, unspecified (principal); Z80.0 Family history of malignant neoplasm of digestive organs; D17.5 Benign lipomatous neoplasm of intra-abdominal organs; K57.30 Diverticulosis of large intestine without perforation or abscess without bleeding; Z01.818 Encounter for other preprocedural examination
CPT/HCPCS: 85025